=== PATIENT | female | born 1975 | race African-American/Black ===

== ENCOUNTER 2017-01-15 16:53 | Emergency (ER) | payer OTHER, SELFPAY ==
[2017-01-15] MEDS ORDERED: Ketorolac Tromethamine 30 MG/ML VIAL ONE (17:56)
== END 2017-01-15 18:18 | disposition home or self-care (01) ==
LOC: ERS 16:53
DX: M54.6 Pain in thoracic spine (principal); M89.8X1 Other specified disorders of bone, shoulder; E11.9 Type 2 diabetes mellitus without complications; I10 Essential (primary) hypertension; F17.210 Nicotine dependence, cigarettes, uncomplicated; Z79.84 Long term (current) use of oral hypoglycemic drugs; Z79.899 Other long term (current) drug therapy
CPT/HCPCS: 99283; J1885

== ENCOUNTER 2017-06-01 12:41 | Emergency (ER) | payer OTHER, SELFPAY | END 2017-06-01 14:22 | disposition left against medical advice (07) | LOC: ERS 12:41 | DX: Z53.21 Procedure and treatment not carried out due to patient leaving prior to being seen by health care provider (principal) ==

== ENCOUNTER 2017-06-01 13:21 | Observation (INO) | payer OTHER, SELFPAY ==
--- NOTE | 2017-06-01 14:04 | RAD ---
PORTABLE CHEST 1 VIEW: Date: 06/01/17 Time: 1404 hours HISTORY: Chest pain. FINDINGS: The heart size is normal. The lungs are expanded without focal areas of consolidation, pneumothorax, or pleural effusions. IMPRESSION: No radiographic evidence of acute cardiopulmonary process. POS: [facility]
[2017-06-01 14:05] LABS: #Basophils 0.1 thou/uL (0.0-0.2); #Lymphocytes 2.1 thou/uL (1.20-3.40); #Monocytes 0.3 thou/uL (0.11-0.59); #Neutrophils 3.1 thou/uL (1.40-6.50); %Eosinophils 0.4 % (0.0-10.0); %Monocytes 5.7 % (0.0-10.0); %Neutrophils 55.9 % (42.0-75.0); Hemoglobin 13.1 g/dL (12.0-16.0); Mean Corpuscular HGB CONC 34.5 g/dL (32.0-36.0); Mean Corpuscular Hemoglobin 31.3 pg (27.0-31.0); Mean Corpuscular Volume 90.8 fl (81.0-99.0); Mean Platelet Volume 7.4 fL (7.4-10.4); Platelet Count 276 thou/uL (130-400); RBC Distribution Width 10.3 % (11.5-14.5); Red Blood Cell (RBC) Count 4.19 mill/uL (4.20-5.40); White Blood Cell (WBC) Count 5.6 thou/uL (4.8-10.8)
[2017-06-01] MEDS ORDERED: Atenolol 25 MG TAB ONE (14:18)
[2017-06-01] MEDS ORDERED: Losartan 25 MG TAB ONE (14:18)
[2017-06-01] MEDS ORDERED: Acetaminophen 500 MG TAB ONE (14:18)
[2017-06-01 14:20] LABS: ALT (SGPT) 20 U/L (8-55); AST (SGOT) 23 U/L (5-34); Albumin 3.6 g/dL (3.5-5.0); Alkaline Phosphatase 102 U/L (40-150); Anion Gap 13 mmol/L (10-20); BUN (Urea Nitrogen) 7 mg/dL (7.0-18.7); CK (CPK) 61 U/L (29-168); Calc. Creatinine Clearance 0 mL/min (70-130); Calcium 9.4 mg/dL (7.8-10.44); Carbon Dioxide 27 mmol/L (22-29); Chloride 102 mmol/L (98-107); Estimated GFR-MDRD Greater than 90; Globulin 3.6 g/dL (2.4-3.5); Glucose 346 mg/dL (70-105); Potassium 3.4 mmol/L (3.5-5.1); Protein, Total 7.2 g/dL (6.0-8.3); Sodium 139 mmol/L (136-145)
[2017-06-01 14:21] LABS: CKMB 0.9 ng/mL (0-6.6); Troponin I 0.034 ng/mL (< 0.028)
--- NOTE | 2017-06-01 14:25 | CT ---
CT BRAIN WITHOUT CONTRAST: Date: 06/01/17 HISTORY: Headache. FINDINGS: Comparison made with exam of 04/11/10. No evidence of infarct, hemorrhage, midline shift, or abnormal extra-axial fluid collections are seen . The ventricular size is normal and the basilar cisterns are patent. The bony calvarium is intact. T he visualized paranasal sinuses and mastoid air cells are well aerated. IMPRESSION: No CT evidence of acute intracranial process. POS: [facility]
[2017-06-01 16:18] VITALS: BMI 30.7
[2017-06-01] MEDS ORDERED: Ondansetron ODT 4 MG TAB PO PRN (17:15)
[2017-06-01] MEDS ORDERED: cloNIDine 0.1 MG TAB PO PRN (17:15)
[2017-06-01] MEDS ORDERED: hydrALAZINE 20 MG/ML VIAL SLOW IVP PRN (17:15)
[2017-06-01] MEDS ORDERED: HumaLOG 300 UNITS/3 ML VIAL SC PRN ×2 (17:15)
[2017-06-01] MEDS ORDERED: Dextrose 50% Abboject 50 ML SYRINGE SLOW IVP PRN (17:15)
[2017-06-01] MEDS ORDERED: Labetalol HCl 100 MG/20 ML VIAL SLOW IVP PRN (17:15)
[2017-06-01] MEDS ORDERED: HYDROcodone/Acetaminophen 5/325 mg Tablet PO PRN (17:15)
[2017-06-01] MEDS ORDERED: Dextrose 5% in Water 1,000 ML IV PRN (17:15)
[2017-06-01] MEDS ORDERED: Ondansetron HCl/PF 4 MG/2 ML Vial IVP PRN (17:15)
[2017-06-01] MEDS ORDERED: Acetaminophen 325 MG TAB PO PRN (17:15)
[2017-06-01 17:32] LABS: Troponin I 0.067 ng/mL (< 0.028)
[2017-06-01] MEDS: Carvedilol 6.25 MG TAB PO SCH (19:36)
[2017-06-01] MEDS: Famotidine 20 MG TAB PO SCH (19:37)
--- NOTE | 2017-06-01 19:52 | HP ---
PRIMARY CARE PHYSICIAN: The patient does not have a primary care physician. CHIEF COMPLAINT: Headache. HISTORY OF PRESENT ILLNESS: Ms. Lin is a very pleasant 41-year-old female that has a history of hype rtension and diabetes. She says she has had hypertension for about little under 10 years and also ndiaye s been diabetic for about 19 years. She says that about 6 months ago, she stopped taking medication because she could not afford it. Then, she says recently she started having a headache and she says that her vision was blurred a bit too. She had been taking ibuprofen and it was not helping, and as a result, she came to the ER for evaluation. When she was in the ER, they evaluated her and got a CT scan of the head which was negative and they ordered some lab work, and it was noted that her tropon in was slightly elevated. She says then they started asking her about chest pain. She says that she started having some chest pressure about 2 days ago. She says it felt like heaviness in her chest. She says it feels like somebody is pushing on her and she cannot tell if it is really pain or whethe r or not, she is just exhausted. She says the pain goes through to her back, and she says that she f eels a little bit short of breath as well like she cannot catch her breath. She says that this pain is not related to exertion and it will happen either at rest or on exertion and that the shortness of breath is the same way. She does say that she did feel a bit nauseated earlier and she also says th at she has been having some hurting in her right arm and hip and sometimes in her neck, but otherwise no other complaints. She also denies having any dizziness or feeling lightheaded. There has been n o radiation to the pain, etc. She also denies being on any long trips recently and no leg pain or le g swelling. REVIEW OF SYSTEMS: Constitutional: There have been no fevers or chills. No night sweats. No weight loss. She does co mplain of some body aches, however. HEENT: She has had the headache as previously mentioned as well as some visual changes, no sore thro at, no rhinorrhea, neck pain, no adenopathy. Pulmonary: No hemoptysis, no cough, no congestion. Cardiovascular: As the history of present illness. Gastrointestinal: She denies any abdominal pain, but she has had some nausea and vomiting, no change in bowels. Genitourinary: No urinary frequency or hematuria. No hesitancy. Neurologic: No focal weakness or numbness. No seizures. Psychiatric: No symptoms of anxiety or depression. Skin and Integument: No skin changes. No rash. PAST MEDICAL HISTORY: Significant for hypertension as well as diabetes mellitus. She has had hypert ension under 10 years and diabetes mellitus for 19 years. PAST SURGICAL HISTORY: She has had a hysterectomy and she believes she had her left ovary removed as well, thyroidectomy. She said she had another surgery on her left side, but she is not sure what th ey did. ALLERGIES: No known drug allergies. FAMILY HISTORY: Significant for asthma. No history of any ischemic heart disease. SOCIAL HISTORY: She admits to smoking about a third a pack per day for about 15 years. Occasionally drinks. She is single, has 4 children. CURRENT MEDICATIONS: None. She had been taking metformin, lisinopril, and atenolol. PHYSICAL EXAMINATION: GENERAL: She is alert and oriented. She appears to be in no acute distress. VITAL SIGNS: Her blood pressure earlier was approximately 180/110, heart rate 106, respiratory rate of 16, and she is afebrile. HEENT: Pupils are equal, round, and reactive. Extraocular muscles are intact. Her sclerae are anic teric. Throat: There is no erythema, no exudates. NECK: No adenopathy, no bruits. LUNGS: Clear. No wheezing, no rales. CARDIOVASCULAR: She has a normal S1, S2. I did not appreciate an S3 or S4. No murmurs, clicks or r ubs. ABDOMEN: Soft, it is nontender, nondistended. Positive for bowel sounds. No rebound or guarding. EXTREMITIES: There is no clubbing, cyanosis, no edema. NEUROLOGICALLY: The exam is nonfocal. LABORATORY DATA: Sodium 139, potassium 3.4, chloride is 102, CO2 is 27, BUN is 7, creatinine 0.8, gl ucose is 346, troponin was 0.034. White blood cell count 5.6, hemoglobin 13.1, hematocrit is 38, daniel telet count is 276. EKG was sinus tachycardia with heart rate of approximately 126. ASSESSMENT AND PLAN: This is a pleasant 41-year-old female that presents to the emergency room initi [facility] with complaint of headache, but was later discovered that she has been having chest pain as well . She also had a slightly elevated troponin at 0.036. I suspect that her symptoms could be entirely related to elevated blood pressure, this would be consistent with causing the headache as well as so me of the chest pressure and possibly a demand ischemia. However, since the patient is uninsured and does not have a primary care physician, I think a cardiac workup would be in order in that she may n ot be able to have followup in the near future to rule out ischemic heart disease, which she is at [facility]; however, I do not suspect an acute coronary syndrome. Also, I think she has adequate risks for p ossible pulmonary embolism as well in that she is slightly overweight for her height and she has a si nus tachycardia as well and some of the characteristics of the pain which are not related to exertion make it difficult to rule this out as well. Therefore, she will be placed in observation. We will get a D-dimer and think we also go ahead and get a CT angiogram of her chest. We will go ahead and g et that now and then tomorrow we will plan on getting a nuclear stress test as well. For elevated blood pressure, we will start her back on lisinopril instead of atenolol will change to carvedilol as this will be less expensive and it is available in the generic. We will hold off on me tformin for now and treat her with a sliding scale. I suspect that she can be restarted on metformin at the time of discharge. Tobacco abuse. She was counseled on the dangers of tobacco abuse and the need to quit, especially in light of a history of hypertension and diabetes.
[2017-06-01 20:39] LABS: Troponin I 0.113 ng/mL (< 0.028)
[2017-06-01] MEDS: Nitroglycerin 2% Ointment 1 INCH/1 GM Packet TOP SCH (20:58)
[2017-06-01] MEDS ORDERED: Lisinopril 10 MG TAB PO SCH (21:00)
[2017-06-01] MEDS ORDERED: Melatonin 3 MG TAB PO SCH (21:15)
[2017-06-02 05:55] LABS: Anion Gap 11 mmol/L (10-20); BUN (Urea Nitrogen) 10 mg/dL (7.0-18.7); Calc. Creatinine Clearance 128 mL/min (70-130); Calcium 9.2 mg/dL (7.8-10.44); Carbon Dioxide 28 mmol/L (22-29); Cardiac Risk 3.6 (Less than 4.5); Chloride 102 mmol/L (98-107); Cholesterol 100 mg/dl (< 200 Desired); Estimated GFR-MDRD Greater than 90; Glucose 287 mg/dL (70-105); HDL Cholesterol 28 mg/dL (>60 Neg Risk); LDL Cholesterol, Calculated 38 mg/dL; Potassium 3.3 mmol/L (3.5-5.1); Sodium 138 mmol/L (136-145); Triglycerides 169 mg/dL (Less than 150)
[2017-06-02 05:59] LABS: Band 3 % (5-11); Hemoglobin 12.6 g/dL (12.0-16.0); Lymphocytes 53 % (21-51); MDiff Complete? YES; Mean Corpuscular HGB CONC 34.2 g/dL (32.0-36.0); Mean Corpuscular Volume 96.5 fl (81.0-99.0); Mean Platelet Volume 7.8 fL (7.4-10.4); Monocytes 7 % (0-10); Neutrophil 33 % (42-75); PLT Morphology Comment Appears Adequate; Platelet Count 272 thou/uL (130-400); RBC Distribution Width 10.7 % (11.5-14.5); RBC Morphology Normal; Reactive Lymphocytes 4 % (0-10); Red Blood Cell (RBC) Count 3.83 mill/uL (4.20-5.40); White Blood Cell (WBC) Count 4.1 thou/uL (4.8-10.8)
[2017-06-02] MEDS: Nitroglycerin 2% Ointment 1 INCH/1 GM Packet TOP SCH ×2 (06:17→13:16)
--- NOTE | 2017-06-02 08:12 | PDOC.EVN ---
Event Note - Event Note Event Note: Patient refused to have the CT-Dissection Protocol last night because she did not want the larger bore IV placed which was required.
[2017-06-02] MEDS ORDERED: Enoxaparin Sodium 40 MG/0.4 ML SYRINGE SC SCH (09:00)
[2017-06-02] MEDS: Carvedilol 6.25 MG TAB PO SCH (10:22)
[2017-06-02] MEDS: Famotidine 20 MG TAB PO SCH (10:23)
--- NOTE | 2017-06-02 15:44 | NM ---
NUCLEAR MEDICINE CARDIAC MYOCARDIAL PERFUSION SPECT EJECTION FRACTION STUDY WALL MOTION CINE: DATE: 06/02/17 HISTORY: 41-year-old female smoker with hypertension and diabetes, presents with dyspnea and chest pain. TECHNIQUE: Number of days: 1 Rest study: Tc99m sestamibi (Cardiolite) dose: None (stress-only study) Exercise stress: treadmill. Stress study: Tc99m sestamibi (Cardiolite) dose: 27.5 mCi FINDINGS: CARDIAC (MYOCARDIAL PERFUSION) SPECT No left ventricular myocardial perfusion defect is identified. EJECTION FRACTION STUDY EF = 45% WALL MOTION CINE No focal wall motion abnormality. IMPRESSION: 1. No evidence of left ventricular myocardial ischemia or infarction. 2. Decreased left ventricular ejection fraction of 45%. LANA Blanton POS: [facility]
--- NOTE | 2017-06-02 15:52 | PDOC.PN ---
- Subjective Encounter Start Date: 06/02/17 Encounter Start Time: 15:51 Ms. Lin is feeling a bit better today than yesterday. The chest pain has improved. - Objective Resuscitation Status: Resuscitation Status FULL:Full Resuscitation MAR Reviewed: Yes Vital Signs & Weight: Vital Signs (12 hours) Temp Pulse Resp BP BP Pulse Ox 06/02/17 10:38 98.1 F 93 16 127/73 98 06/02/17 08:00 98.1 F 97 16 06/02/17 07:40 98.8 F 100 16 133/77 96 06/02/17 04:13 98.1 F 97 16 134/82 99 Weight Weight 179 lb I&O: 06/01/17 06/02/17 06/03/17 06:59 06:59 06:59 Intake Total 540 Balance 540 Result Diagrams: 06/02/17 04:16 06/02/17 04:16 Additional Labs: Accuchecks 06/02/17 06/02/17 06/01/17 10:47 05:31 20:53 POC Glucose 241 H 297 H 299 H 06/01/17 16:49 POC Glucose 289 H Phys Exam - Physical Examination HEENT: PERRLA Respiratory: no wheezing, no rales, no rhonchi, clear to auscultation bilateral Cardiovascular: RRR, no significant murmur, no rub Gastrointestinal: soft, non-tender, positive bowel sounds Musculoskeletal: no edema Dx/Plan (1) Chest pain Code(s): R07.9 - CHEST PAIN, UNSPECIFIED Status: Acute (2) Hypertension Code(s): I10 - ESSENTIAL (PRIMARY) HYPERTENSION Status: Chronic (3) Diabetes mellitus type 2 in obese Code(s): E11.69 - TYPE 2 DIABETES MELLITUS WITH OTHER SPECIFIED COMPLICATION; E66.9 - OBESITY, UNSPECIFIED Status: Chronic - Plan * HTN- blood pressure is better on medication * DM- will discharge with Metformin * Chest pain- likely from hypertensive urgency- stress test was negative * Stable for discharge home.
[2017-06-02 16:04] VITALS: BP 144/80; TEMP 98.5
--- NOTE | 2017-06-02 20:16 | DIS ---
DATE OF ADMISSION: 06/01/2017 DATE OF DISCHARGE: 06/02/2017 The patient currently does not have a primary care physician. DISCHARGE DISPOSITION: Home. PRIMARY DISCHARGE DIAGNOSES: 1. Hypertensive urgency. 2. Diabetes mellitus, type 2. 3. Obesity. DISCHARGE MEDICATIONS: Include lisinopril 10 mg daily, carvedilol 6.25 mg twice a day, metformin 500 mg twice daily. CODE STATUS: FULL CODE. ALLERGIES: No known drug allergies. PROCEDURES DONE DURING ADMISSION: The patient had a nuclear stress test, which demonstrated no stres s-induced myocardial ischemia. There was a decreased left ventricular ejection fraction of 45%. The patient also had a CT scan of the brain, which was negative for any acute intracranial process. HOSPITAL COURSE: Ms. Lin is a pleasant 41-year-old female, who presented to the emergency room with complaint of chest tightness, which radiated towards her back and arm. She also had an elevated trop onin in the indeterminate range. She had been out of her blood pressure medication as well as diabet ic medications for over 6 months. She stated that she was unable to afford the medications. It is s uspected that the cause of her chest discomfort was likely due to hypertensive urgency. She did have some blood pressures, which were recorded as high as 180 systolic and diastolics above 100. She was restarted on blood pressure medication and she tolerated this well. The following day, her symptoms began to improve. She was given the information that the current medications including carvedilol, lisinopril, and metformin are on the [employer] $4 list and should be affordable and that she can also f ollow up with the [facility] until she can establish an alternative primary care physician . Therefore, the patient is being discharged home. She was instructed that she does have the beginn ings of possible heart failure, i.e., an echocardiogram was performed, but it did show some diminishe d ejection fraction on the stress test and that she would need to follow a low sodium diet as well as being compliant with medications.
== END 2017-06-02 16:38 | disposition home or self-care (01) ==
LOC: SCSER 13:21 → 2SW 15:30
PROVIDERS: ADMIT Internal Medicine; ATTEND Internal Medicine
DX: I16.0 Hypertensive urgency (principal); I10 Essential (primary) hypertension; E11.9 Type 2 diabetes mellitus without complications; F17.200 Nicotine dependence, unspecified, uncomplicated; E66.9 Obesity, unspecified; Z68.30 Body mass index [BMI] 30.0-30.9, adult; Z79.84 Long term (current) use of oral hypoglycemic drugs; Z79.899 Other long term (current) drug therapy
CPT/HCPCS: 36415; 36416; 70450; 71045; 78452; 80048; 80053; 80061; 82550; 82553; 84484; 85025; 85379; 93005; 93017; 94760; A9500; G0378

== ENCOUNTER 2018-03-06 15:55 | Emergency (ER) | payer OTHER, SELFPAY ==
[2018-03-06] MEDS ORDERED: Ibuprofen 800 MG TAB ONE (16:28)
[2018-03-06] MEDS ORDERED: Benzonatate 100 MG CAP ONE (16:28)
--- NOTE | 2018-03-06 16:37 | RAD ---
CHEST TWO VIEWS: 03/06/18 HISTORY: Cough. COMPARISON: 11/17/15. FINDINGS: The cardiac silhouette and pulmonary vasculature are unremarkable. Mediastinum is midline. No conflue nt air space consolidation, pneumothorax or pleural fluid. IMPRESSION: No active cardiopulmonary abnormalities are demonstrated. POS: [facility]
== END 2018-03-06 17:08 | disposition home or self-care (01) ==
LOC: ERS 15:55
DX: J40 Bronchitis, not specified as acute or chronic (principal); F17.210 Nicotine dependence, cigarettes, uncomplicated; I10 Essential (primary) hypertension; E11.9 Type 2 diabetes mellitus without complications
CPT/HCPCS: 71046; 87081; 87430

== ENCOUNTER 2018-07-29 21:00 | Emergency (ER) | payer SELFPAY ==
[2018-07-29 21:27] LABS: #Basophils 0.1 thou/uL (0.0-0.2); #Eosinphils 0.2 thou/uL (0.0-0.7); #Lymphocytes 2.2 thou/uL (1.20-3.40); #Monocytes 0.3 thou/uL (0.11-0.59); #Neutrophils 4.6 thou/uL (1.40-6.50); %Basophils 0.9 % (0.0-1.0); %Eosinophils 2.2 % (0.0-10.0); %Lymphocytes 29.8 % (21.0-51.0); %Monocytes 3.6 % (0.0-10.0); %Neutrophils 63.6 % (42.0-75.0); Hemoglobin 14.3 g/dL (12.0-16.0); Mean Corpuscular Hemoglobin 32.4 pg (27.0-31.0); Mean Corpuscular Volume 95.3 fL (78.0-98.0); Mean Platelet Volume 8.6 fL (7.4-10.4); Platelet Count 273 thou/uL (130-400); RBC Distribution Width 11.5 % (11.5-14.5); Red Blood Cell (RBC) Count 4.42 mill/uL (4.20-5.40); White Blood Cell (WBC) Count 7.3 thou/uL (4.8-10.8)
[2018-07-29 21:47] LABS: Bilirubin Negative (Negative); Blood, Urine Small (Negative); Clarity CLEAR (Clear); Glucose, Urine (Dipstick) >=1000 mg/dL (Negative); Leukocyte Negative (Negative); Nitrite Negative (Negative); Protein, Urine (Dipstick) 100 mg/dL (Neg-Trace); Specific Gravity, Urine 1.026 (1.002-1.036); Urobilinogen 0.2 mg/dL (0.2-1.0)
[2018-07-29 21:48] LABS: ALT (SGPT) 13 U/L (8-55); AST (SGOT) 14 U/L (5-34); Albumin 3.1 g/dL (3.5-5.0); Alkaline Phosphatase 140 U/L (40-150); Anion Gap 9 mmol/L (10-20); BUN (Urea Nitrogen) 11 mg/dL (7.0-18.7); Bilirubin, Total 0.4 mg/dL (0.2-1.2); Calc. Creatinine Clearance 0 mL/min (70-130); Calcium 9.1 mg/dL (7.8-10.44); Carbon Dioxide 30 mmol/L (22-29); Chloride 99 mmol/L (98-107); Estimated GFR-MDRD 56; Globulin 3.5 g/dL (2.4-3.5); Glucose 435 mg/dL (70-105); Potassium 3.3 mmol/L (3.5-5.1); Protein, Total 6.6 g/dL (6.0-8.3); Sodium 135 mmol/L (136-145)
[2018-07-29 21:50] LABS: Bacteria/HPF None Seen HPF (None Seen); Hyaline Casts/LPF 0-3 HYALINE CAST LPF (0-3 Hyaline); Pathc Cast-AUWi Flag 0.27 (0-2.49); Squamous Epithelial 0-3 HPF (0-3)
--- NOTE | 2018-07-30 07:36 | ULT ---
PRELIMINARY REPORT/[facility]/EMERGENCY AFTER HOURS PROCEDURE: EXAM: US Pelvis Complete, Transabdominal and US Pelvis, Transvaginal EXAM DATE/TIME: 07/30/2018 2:31 AM CLINICAL HISTORY: 43 years old, female; Pain and signs and symptoms; Constipation; Slow transit; Pelvic pain; Prior surgery; Surgery date: 6+ months; Surgery type: Hysterectomy x yrs ago, left ov remains; Patient HX: Llq pain, constipation TECHNIQUE: Imaging protocol: Real-time transabdominal and transvaginal pelvic ultrasound (complete) with image documentation. Transvaginal imaging was used for better evaluation of the endometrium and adnexa. COMPARISON: CT Stone Protocol 07/30/2018 12:34 AM FINDINGS: Uterus/cervix: Prior hysterectomy. Right adnexa: Prior right oophorectomy. Left adnexa: 2.4 cm left ovarian cyst. Left ovary otherwise normal with normal Doppler signal. Free fluid: None. IMPRESSION: 2.4 cm left ovarian cyst. Thank you for allowing us to participate in the care of your patient. Dictated and Authenticated by: Sea Gray MD 07/30/2018 4:45 AM Central Time ([place] & [place]) FINAL REPORT US Pelvic Transvag W Doppler History: [Pelvic pain and constipation. Prior hysterectomy.] Comparison: CT abdomen and pelvis without contrast stone protocol same day Real-time grayscale, color, and spectral analysis of the pelvis performed transabdominal and transvag inal approach. Impression: Findings and impression are concordant with the preliminary report. Transcribed Date/Time: 07/30/2018 7:54 AM
--- NOTE | 2018-07-30 07:37 | CT ---
CT ABDOMEN AND PELVIS WITHOUT CONTRAST: Date: 07/29/18 HISTORY: Left flank pain. FINDINGS: Absence of oral and IV contrast reduces the sensitivity of exam, particularly for evaluation of solid organs and bowel. The lung bases are clear. No free air or free fluid is seen in the abdomen or pelvis. No calcified ga llstones are seen. There is a 3.0 mm calculus in the inferior pole manjeet of the left kidney. No calculi seen in the righ t kidney, either ureter, or the urinary bladder. No hydroureteronephrosis is noted on either side. The appendix is normal. No aneurysmal dilatation of the abdominal aorta is seen. There are mild degen erative changes in the spine. The patient is post hysterectomy. There is mass-like prominence of the left adnexa. IMPRESSION: 1. Nonobstructing 3.0 mm left renal calculus. 2. Prominence of the left ovary. The possibility of a left ovarian mass cannot be excluded and would be better evaluated with a pelvic ultrasound. POS: [facility]
== END 2018-07-30 04:55 | disposition home or self-care (01) ==
LOC: ERS 21:00
DX: N12 Tubulo-interstitial nephritis, not specified as acute or chronic (principal); K59.00 Constipation, unspecified; E11.9 Type 2 diabetes mellitus without complications; I10 Essential (primary) hypertension; F17.210 Nicotine dependence, cigarettes, uncomplicated
CPT/HCPCS: 36415; 74176; 76856; 80053; 81003; 81015; 83690; 85025; 87086

== ENCOUNTER 2018-08-20 23:16 | Emergency (ER) | payer SELFPAY ==
[2018-08-20 23:48] LABS: Bacteria/HPF 1+ HPF (None Seen); Bilirubin Negative (Negative); Blood, Urine Moderate (Negative); Clarity Slightly Cloudy (Clear); Glucose, Urine (Dipstick) >=1000 mg/dL (Negative); Hyaline Casts/LPF NONE SEEN LPF (0-3 Hyaline); Leukocyte Negative (Negative); Nitrite Negative (Negative); Protein, Urine (Dipstick) > or equal to 300 mg/dL (Neg-Trace); Specific Gravity, Urine 1.015 (1.005-1.030); Squamous Epithelial 0-3 HPF (0-3); WBC/HPF 0-3 HPF (0-3)
--- NOTE | 2018-08-21 07:45 | CT ---
PRELIMINARY REPORT/[facility]/EMERGENCY AFTER HOURS PROCEDURE: EXAM: CT Abdomen and Pelvis Without Contrast EXAM DATE/TIME: 08/21/2018 12:00 AM CLINICAL HISTORY: 43 years old, female; Abdominal pain; Patient HX: Left flank for 2 days, hematuria today. Hs of total hysterectomy. TECHNIQUE: Imaging protocol: Axial computed tomography images of the abdomen and pelvis without contrast. Masterson l reformatted images were created and reviewed. Radiation optimization: All CT scans at this facility use at least one of these dose optimization techniques: automated exposure control; mA and/or kV adj ustment per patient size (includes targeted exams where dose is matched to clinical indication); or i terative reconstruction. COMPARISON: CT Stone Protocol 07/30/2018 12:34 AM FINDINGS: ABDOMEN: Liver: No acute findings. No mass. Gallbladder and bile ducts: No calcified stones. No ductal dilation. Pancreas: No acute findings. No ductal dilation. Spleen: No acute findings. No splenomegaly. Adrenals: No acute findings. No mass. Kidneys and ureters: Punctate left renal nonobstructing stone. No obstructing stone. No hydronephrosi s. Stomach and bowel: Fecal loading. Diverticulosis. No evidence of bowel obstruction. Appendix: No evidence of appendicitis. PELVIS: Bladder: No stones. Reproductive: No acute findings. ABDOMEN and PELVIS: Intraperitoneal space: No free air. No significant fluid collection. Bones/joints: No acute fracture. Soft tissues: Stable. Vasculature: No abdominal aortic aneurysm. Lymph nodes: No significant adenopathy. IMPRESSION: Punctate left renal nonobstructing stone. Otherwise no acute findings. Thank you for allowing us to participate in the care of your patient. Dictated and Authenticated by: Lamin Shoemaker MD 08/21/2018 12:42 AM Central Time ([place] & [place]) FINAL REPORT EMERGENCY AFTER HOURS ABDOMEN AND PELVIC CT SCAN WITHOUT IV CONTRAST: Date: 08/21/18 Time: 0005 hours FINDINGS/IMPRESSION: Tiny, nonobstructing left renal calculi. No evidence for acute obstruction. No CT evidence for acu te appendicitis. Probable postsurgical fat stranding in the midline near the umbilicus. No significan t other acute process. Report in agreement with preliminary report given on-call by [facility]. POS: [facility]
== END 2018-08-21 02:01 | disposition home or self-care (01) ==
LOC: SCSER 23:16
DX: M54.5 Low back pain (principal); E11.9 Type 2 diabetes mellitus without complications; I10 Essential (primary) hypertension; F17.210 Nicotine dependence, cigarettes, uncomplicated
CPT/HCPCS: 74176; 81003; 81015

== ENCOUNTER 2018-09-19 08:55 | Emergency (ER) | payer SELFPAY ==
[2018-09-19] MEDS ORDERED: Diazepam 5 MG TAB ONE (10:10)
[2018-09-19] MEDS ORDERED: Ketorolac Tromethamine 30 MG/ML VIAL ONE (10:10)
[2018-09-19 10:24] LABS: #Eosinphils 0.2 thou/uL (0.0-0.7); #Lymphocytes 2.7 thou/uL (1.20-3.40); #Monocytes 0.2 thou/uL (0.11-0.59); #Neutrophils 3.5 thou/uL (1.40-6.50); %Basophils 0.6 % (0.0-1.0); %Eosinophils 3.3 % (0.0-10.0); %Lymphocytes 40.2 % (21.0-51.0); %Monocytes 2.9 % (0.0-10.0); Hemoglobin 14.4 g/dL (12.0-16.0); Mean Corpuscular HGB CONC 33.9 g/dL (32.0-36.0); Mean Corpuscular Volume 94.4 fL (78.0-98.0); Platelet Count 322 thou/uL (130-400); RBC Distribution Width 11.1 % (11.5-14.5); Red Blood Cell (RBC) Count 4.52 mill/uL (4.20-5.40); White Blood Cell (WBC) Count 6.6 thou/uL (4.8-10.8)
[2018-09-19 10:32] LABS: BHCG - Serum Negative (NEGATIVE); Pregs Control Background? CLEAR/WHITE (CLR/WHITE); Pregs Control Bar Appear? YES (CONTROL BAR)
[2018-09-19 10:49] LABS: ALT (SGPT) 12 U/L (8-55); AST (SGOT) 13 U/L (5-34); Albumin 3.6 g/dL (3.5-5.0); Alkaline Phosphatase 97 U/L (40-150); Anion Gap 14 mmol/L (10-20); BUN (Urea Nitrogen) 16 mg/dL (7.0-18.7); Bilirubin, Total 0.7 mg/dL (0.2-1.2); Calc. Creatinine Clearance 0 mL/min (70-130); Calcium 10.1 mg/dL (7.8-10.44); Carbon Dioxide 28 mmol/L (22-29); Chloride 100 mmol/L (98-107); Estimated GFR-MDRD 72; Globulin 3.5 g/dL (2.4-3.5); Glucose 159 mg/dL (70-105); Lipase 100 U/L (8-78); Potassium 3.6 mmol/L (3.5-5.1); Protein, Total 7.1 g/dL (6.0-8.3); Sodium 138 mmol/L (136-145)
--- NOTE | 2018-09-19 11:12 | RAD ---
Chest AP view INDICATION: Chest pain COMPARISON: June 01, 2017 FINDINGS: Lungs:The lungs are clear Cardiac silhouette pulmonary vasculature:The cardiomediastinal silhouette appears within normal limit s. Pleural spaces:No pleural effusion or pneumothorax is demonstrated. Upper abdomen:No abnormality seen. Osseous structures: No acute osseous abnormality. Additional findings:None. IMPRESSION: No acute cardiopulmonary abnormality.
[2018-09-19 13:16] LABS: Bilirubin Negative (Negative); Blood, Urine Small (Negative); Clarity CLOUDY (Clear); Glucose, Urine (Dipstick) Negative (Negative); Leukocyte Trace (Negative); Nitrite Negative (Negative); Protein, Urine (Dipstick) 300 mg/dL (Neg-Trace); Specific Gravity, Urine 1.016 (1.002-1.036); Urobilinogen 0.2 mg/dL (0.2-1.0); pH, Urine 5.5 (5.0-9.0)
[2018-09-19 13:24] LABS: Bacteria/HPF 4+ HPF (None Seen); Hyaline Casts/LPF NONE SEEN LPF (0-3 Hyaline); RBC/HPF 0-3 HPF (0-3); Squamous Epithelial 0-3 HPF (0-3)
== END 2018-09-19 13:55 | disposition home or self-care (01) ==
LOC: ERS 08:55
DX: N39.0 Urinary tract infection, site not specified (principal); F17.210 Nicotine dependence, cigarettes, uncomplicated
CPT/HCPCS: 36415; 71045; 80053; 81003; 81015; 83690; 84484; 84703; 85025; 87077; 87086; 87186; 93005; 96372; J1885

== ENCOUNTER 2019-04-04 21:20 | Emergency (ER) | payer MEDICAID, OTHER ==
[2019-04-04] MEDS ORDERED: HYDROcodone/Acetaminophen 5/325 mg Tablet ONE (22:40)
== END 2019-04-04 23:05 | disposition home or self-care (01) ==
LOC: ERS 21:20
DX: R20.2 Paresthesia of skin (principal); E11.9 Type 2 diabetes mellitus without complications; I10 Essential (primary) hypertension; Z87.891 Personal history of nicotine dependence; Z79.84 Long term (current) use of oral hypoglycemic drugs; Z79.899 Other long term (current) drug therapy; Z79.82 Long term (current) use of aspirin
CPT/HCPCS: 36416; 99283

== ENCOUNTER 2022-04-17 11:43 | Inpatient (IN) | payer MEDICAID, OTHER ==
[2022-04-17 12:37] LABS: #Eosinphils 0.4 thou/uL (0.0-0.7); #Lymphocytes 3.2 thou/uL (1.20-3.40); #Monocytes 0.4 thou/uL (0.11-0.59); #Neutrophils 6.3 thou/uL (1.40-6.50); %Basophils 0.5 % (0.0-1.0); %Eosinophils 3.9 % (0.0-10.0); %Monocytes 3.9 % (0.0-10.0); %Neutrophils 60.9 % (42.0-75.0); Hemoglobin 11.6 g/dL (12.0-16.0); Mean Corpuscular HGB CONC 33.9 g/dL (32.0-36.0); Mean Corpuscular Hemoglobin 32.2 pg (27.0-31.0); Mean Platelet Volume 8.3 fL (7.4-10.4); Platelet Count 370 10x3/uL (130-400); RBC Distribution Width 12.1 % (11.5-14.5); Red Blood Cell (RBC) Count 3.61 mill/uL (4.20-5.40); White Blood Cell (WBC) Count 10.3 10x3/uL (4.8-10.8)
[2022-04-17 12:49] LABS: BHCG - Serum Negative (NEGATIVE); Pregs Control Background? CLEAR/WHITE (CLR/WHITE); Pregs Control Bar Appear? YES (CONTROL BAR)
[2022-04-17 12:56] LABS: ALT (SGPT) 18 U/L (8-55); AST (SGOT) 13 U/L (5-34); Albumin 3.6 g/dL (3.5-5.0); Alkaline Phosphatase 121 U/L (40-110); Anion Gap 15 mmol/L (10-20); BUN (Urea Nitrogen) 55 mg/dL (7.0-18.7); Bilirubin, Total 0.8 mg/dL (0.2-1.2); Calc. Creatinine Clearance 0 mL/min (70-130); Calcium 9.9 mg/dL (7.8-10.44); Carbon Dioxide 17 mmol/L (22-29); Chloride 106 mmol/L (98-107); Estimated GFR 16; Glucose 227 mg/dL (70-105); Lipase 59 U/L (8-78); Potassium 4.1 mmol/L (3.5-5.1); Protein, Total 7.6 g/dL (6.0-8.3); Sodium 134 mmol/L (136-145)
[2022-04-17 13:37] LABS: Magnesium 1.3 mg/dL (1.6-2.6)
[2022-04-17 13:50] LABS: Bacteria/HPF 2+ HPF (None Seen); Bilirubin Negative (Negative); Blood, Urine Negative (Negative); Clarity Clear (Clear); Glucose, Urine (Dipstick) 30 mg/dL (Negative); Ketone, Urine Negative (Negative); Leukocyte 250 Leu/uL (Negative); Nitrite Negative (Negative); Protein, Urine (Dipstick) 100 mg/dL (Neg-Trace); Specific Gravity, Urine 1.014 (1.002-1.036); Squamous Epithelial 0-3 HPF (0-3); Urobilinogen Normal mg/dL (Less than 2); WBC/HPF 21-50 HPF (0-3); pH, Urine 5.5 (5.0-9.0)
[2022-04-17] MEDS ORDERED: cefTRIAXone\\ROCEPHIN 1 GM VIAL ONE (14:48)
[2022-04-17 15:04] LABS: SARS-CoV-2 NAA Rapid Test Not Detected (NotDetected)
[2022-04-17] MEDS ORDERED: Dextrose 50% Abboject 50 ML SYRINGE SLOW IVP PRN (16:01)
[2022-04-17] MEDS ORDERED: Ondansetron PF 4 MG/2 ML Vial IVP PRN (16:01)
[2022-04-17] MEDS ORDERED: Dextrose 5% in Water 1,000 ML IV PRN (16:01)
[2022-04-17] MEDS ORDERED: HumaLOG 300 UNITS/3 ML VIAL SC PRN ×2 (16:03)
[2022-04-17] MEDS ORDERED: hydrALAZINE 20 MG/ML VIAL SLOW IVP PRN (16:13)
[2022-04-17] MEDS ORDERED: Nicotine 7 MG PATCH TD PRN (16:14)
[2022-04-17] MEDS ORDERED: Magnesium 2 GM/50 ML(in water) 2 GM in Premix Bag 1 BAG IVPB SCH (16:15)
[2022-04-17] MEDS ORDERED: Magnesium 2 GM/50 ML BAG (IN WATER) ONE (16:31)
[2022-04-17] MEDS: Sodium Chloride 0.9% 1,000 ML IV SCH ×2 (16:42→23:44)
[2022-04-17 16:52] LABS: Phosphorus 3.7 mg/dL (2.3-4.7)
[2022-04-17 20:19] VITALS: BMI 34.0
[2022-04-17 22:38] LABS: Anion Gap 17 mmol/L (10-20); BUN (Urea Nitrogen) 49 mg/dL (7.0-18.7); Calc. Creatinine Clearance 35 mL/min (70-130); Calcium 9.3 mg/dL (7.8-10.44); Carbon Dioxide 13 mmol/L (22-29); Chloride 114 mmol/L (98-107); Estimated GFR 20; Glucose 157 mg/dL (70-105); Sodium 140 mmol/L (136-145)
[2022-04-18 06:40] LABS: #Eosinphils 0.3 thou/uL (0.0-0.7); #Lymphocytes 2.5 thou/uL (1.20-3.40); #Monocytes 0.4 thou/uL (0.11-0.59); #Neutrophils 4.3 thou/uL (1.40-6.50); %Basophils 0.3 % (0.0-1.0); %Eosinophils 4.5 % (0.0-10.0); %Lymphocytes 33.4 % (21.0-51.0); %Monocytes 4.9 % (0.0-10.0); Hemoglobin 9.5 g/dL (12.0-16.0); Mean Corpuscular HGB CONC 34.5 g/dL (32.0-36.0); Mean Corpuscular Hemoglobin 32.8 pg (27.0-31.0); Mean Platelet Volume 8.1 fL (7.4-10.4); Platelet Count 267 10x3/uL (130-400); Red Blood Cell (RBC) Count 2.88 mill/uL (4.20-5.40); White Blood Cell (WBC) Count 7.5 10x3/uL (4.8-10.8)
[2022-04-18 06:54] LABS: Anion Gap 13 mmol/L (10-20); BUN (Urea Nitrogen) 45 mg/dL (7.0-18.7); Calc. Creatinine Clearance 39 mL/min (70-130); Calcium 9.3 mg/dL (7.8-10.44); Carbon Dioxide 15 mmol/L (22-29); Chloride 114 mmol/L (98-107); Estimated GFR 23; Glucose 150 mg/dL (70-105); Magnesium 1.6 mg/dL (1.6-2.6); Phosphorus 3.2 mg/dL (2.3-4.7); Potassium 4.1 mmol/L (3.5-5.1); Sodium 138 mmol/L (136-145)
[2022-04-18] MEDS: Aspirin 81 mg Enteric Coated Tablet PO SCH (08:43)
[2022-04-18] MEDS: Sodium Chloride 0.9% 1,000 ML IV SCH ×3 (08:43→21:04)
[2022-04-18] MEDS ORDERED: Loperamide HCl 2 MG CAP PO PRN (11:09)
[2022-04-18 11:15] LABS: Campy jejuni + coli by PCR Negative (Negative); STEC Shiga Toxin 1+2 Negative (Negative); Salmonella spp. by PCR Negative (Negative); Shigella spp + EIEC by PCR Negative (Negative)
[2022-04-18] MEDS ORDERED: Loperamide HCl 2 MG CAP PO SCH (11:15)
[2022-04-19] MEDS: Sodium Chloride 0.9% 1,000 ML IV SCH ×2 (05:09→19:06)
[2022-04-19] MEDS: Saccharomyces boulardii 250 MG CAP PO SCH (09:23)
[2022-04-19] MEDS: Aspirin 81 mg Enteric Coated Tablet PO SCH (09:23)
[2022-04-19 09:45] LABS: Anion Gap 15 mmol/L (10-20); BUN (Urea Nitrogen) 28 mg/dL (7.0-18.7); Calc. Creatinine Clearance 48 mL/min (70-130); Calcium 9.1 mg/dL (7.8-10.44); Carbon Dioxide 10 mmol/L (22-29); Chloride 119 mmol/L (98-107); Estimated GFR 29; Glucose 157 mg/dL (70-105); Potassium 4.4 mmol/L (3.5-5.1); Sodium 140 mmol/L (136-145)
[2022-04-19 10:13] LABS: #Eosinphils 0.4 thou/uL (0.0-0.7); #Lymphocytes 2.7 thou/uL (1.20-3.40); #Monocytes 0.3 thou/uL (0.11-0.59); #Neutrophils 3.5 thou/uL (1.40-6.50); %Basophils 0.7 % (0.0-1.0); %Eosinophils 6.4 % (0.0-10.0); %Monocytes 4.1 % (0.0-10.0); %Neutrophils 49.8 % (42.0-75.0); Hemoglobin 11.2 g/dL (12.0-16.0); Mean Corpuscular HGB CONC 34.2 g/dL (32.0-36.0); Mean Corpuscular Hemoglobin 32.7 pg (27.0-31.0); Mean Corpuscular Volume 95.6 fl (78.0-98.0); Mean Platelet Volume 7.9 fL (7.4-10.4); Platelet Count 343 10x3/uL (130-400); RBC Distribution Width 12.1 % (11.5-14.5); Red Blood Cell (RBC) Count 3.44 mill/uL (4.20-5.40); White Blood Cell (WBC) Count 6.9 10x3/uL (4.8-10.8)
[2022-04-19] MEDS: Acetaminophen 325 MG TAB PO PRN ×2 (11:29→21:51)
[2022-04-19] MEDS: Sodium Bicarbonate Tab 325 MG TAB PO SCH ×2 (14:17→21:51)
[2022-04-20] MEDS: Sodium Chloride 0.9% 1,000 ML IV SCH ×2 (02:41→09:09)
[2022-04-20 06:30] LABS: #Eosinphils 0.4 thou/uL (0.0-0.7); #Lymphocytes 2.3 thou/uL (1.20-3.40); #Monocytes 0.3 thou/uL (0.11-0.59); #Neutrophils 2.6 thou/uL (1.40-6.50); %Basophils 0.4 % (0.0-1.0); %Eosinophils 7.5 % (0.0-10.0); %Lymphocytes 40.1 % (21.0-51.0); %Monocytes 5.9 % (0.0-10.0); %Neutrophils 46.1 % (42.0-75.0); Hemoglobin 9.2 g/dL (12.0-16.0); Mean Corpuscular HGB CONC 33.8 g/dL (32.0-36.0); Mean Corpuscular Hemoglobin 32.2 pg (27.0-31.0); Mean Corpuscular Volume 95.4 fl (78.0-98.0); Mean Platelet Volume 7.8 fL (7.4-10.4); Platelet Count 282 10x3/uL (130-400); Red Blood Cell (RBC) Count 2.85 mill/uL (4.20-5.40); White Blood Cell (WBC) Count 5.7 10x3/uL (4.8-10.8)
[2022-04-20 06:47] LABS: Anion Gap 13 mmol/L (10-20); BUN (Urea Nitrogen) 26 mg/dL (7.0-18.7); Calc. Creatinine Clearance 51 mL/min (70-130); Calcium 9.2 mg/dL (7.8-10.44); Carbon Dioxide 16 mmol/L (22-29); Chloride 112 mmol/L (98-107); Estimated GFR 31; Glucose 169 mg/dL (70-105); Potassium 3.9 mmol/L (3.5-5.1); Sodium 137 mmol/L (136-145)
[2022-04-20] MEDS: Aspirin 81 mg Enteric Coated Tablet PO SCH (09:10)
[2022-04-20] MEDS: Sodium Bicarbonate Tab 325 MG TAB PO SCH (09:11)
[2022-04-20] MEDS: Saccharomyces boulardii 250 MG CAP PO SCH (09:11)
[2022-04-20 12:24] VITALS: BP 141/91; TEMP 98
== END 2022-04-20 12:23 | disposition home or self-care (01) | DRG 683 ==
LOC: ERS 11:43 → ERHOLD 14:18 → T4-A 19:51
PROVIDERS: ADMIT Family Medicine; ATTEND Internal Medicine
DX: N17.9 Acute kidney failure, unspecified (principal); E87.1 Hypo-osmolality and hyponatremia; E87.20 Acidosis, unspecified; N30.00 Acute cystitis without hematuria; A08.4 Viral intestinal infection, unspecified; N18.4 Chronic kidney disease, stage 4 (severe); Z20.822 Contact with and (suspected) exposure to COVID-19; E83.42 Hypomagnesemia; K21.9 Gastro-esophageal reflux disease without esophagitis; I12.9 Hypertensive chronic kidney disease with stage 1 through stage 4 chronic kidney disease, or unspecified chronic kidney disease; D63.1 Anemia in chronic kidney disease; Z79.84 Long term (current) use of oral hypoglycemic drugs; Z79.82 Long term (current) use of aspirin; Z79.899 Other long term (current) drug therapy
CPT/HCPCS: 36415; 36416; 71045; 76770; 80048; 80053; 81003; 81015; 83690; 83735; 84100; 84484; 84703; 85025; 87086; 87324; 87449; 87505; 93005; 96361; 96365; J0696; J2405; J3475; J7050; U0002

== ENCOUNTER 2022-08-08 13:36 | Emergency (ER) | payer OTHER ==
[2022-08-08 14:43] LABS: #Basophils 0.1 thou/uL (0.0-0.2); #Eosinphils 0.3 thou/uL (0.0-0.7); #Lymphocytes 2.8 thou/uL (1.20-3.40); #Monocytes 0.4 thou/uL (0.11-0.59); #Neutrophils 6.5 thou/uL (1.40-6.50); %Basophils 0.6 % (0.0-1.0); %Eosinophils 3.4 % (0.0-10.0); %Monocytes 3.8 % (0.0-10.0); %Neutrophils 64.3 % (42.0-75.0); Hemoglobin 11.4 g/dL (12.0-16.0); Mean Corpuscular HGB CONC 33.8 g/dL (32.0-36.0); Mean Corpuscular Hemoglobin 31.9 pg (27.0-31.0); Mean Corpuscular Volume 94.4 fl (78.0-98.0); Mean Platelet Volume 8.9 fL (7.4-10.4); Platelet Count 263 10x3/uL (130-400); RBC Distribution Width 11.7 % (11.5-14.5); Red Blood Cell (RBC) Count 3.58 mill/uL (4.20-5.40)
[2022-08-08 15:04] LABS: ALT (SGPT) 10 U/L (8-55); AST (SGOT) 12 U/L (5-34); Albumin 2.7 g/dL (3.5-5.0); Alkaline Phosphatase 180 U/L (40-110); Anion Gap 14 mmol/L (10-20); BUN (Urea Nitrogen) 32 mg/dL (7.0-18.7); Bilirubin, Total 0.3 mg/dL (0.2-1.2); Calc. Creatinine Clearance 0 mL/min (70-130); Calcium 9.2 mg/dL (7.8-10.44); Carbon Dioxide 23 mmol/L (22-29); Chloride 105 mmol/L (98-107); Estimated GFR 18; Globulin 3.4 g/dL (2.4-3.5); Glucose 125 mg/dL (70-105); Protein, Total 6.1 g/dL (6.0-8.3); Sodium 139 mmol/L (136-145)
== END 2022-08-08 19:05 | disposition left against medical advice (07) ==
LOC: ERS 13:36
DX: Z53.29 Procedure and treatment not carried out because of patient's decision for other reasons (principal)
CPT/HCPCS: 36415; 36416; 80053; 85025

== ENCOUNTER 2022-12-21 10:09 | Emergency (ER) | payer OTHER ==
[2022-12-21] MEDS ORDERED: Ondansetron ODT 4 MG TAB ONE (10:23)
== END 2022-12-21 11:17 | disposition home or self-care (01) ==
LOC: ERS 10:09
DX: U07.1 COVID-19 (principal); R11.2 Nausea with vomiting, unspecified; R19.7 Diarrhea, unspecified; E11.9 Type 2 diabetes mellitus without complications; I10 Essential (primary) hypertension; Z87.891 Personal history of nicotine dependence; Z79.82 Long term (current) use of aspirin; Z79.4 Long term (current) use of insulin
CPT/HCPCS: 99283; Q0162

== ENCOUNTER 2022-12-22 07:15 | Emergency (ER) | payer OTHER ==
[2022-12-22 08:07] LABS: #Monocytes 0.2 thou/uL (0.11-0.59); %Basophils 0.1 % (0.0-1.0); %Lymphocytes 17.8 % (21.0-51.0); %Neutrophils 79.8 % (42.0-75.0); Hematocrit 34.2 % (36.0-47.0); Hemoglobin 11.4 g/dL (12.0-16.0); Mean Corpuscular HGB CONC 33.3 g/dL (32.0-36.0); Mean Corpuscular Hemoglobin 30.5 pg (27.0-31.0); Mean Corpuscular Volume 91.4 fl (78.0-98.0); Mean Platelet Volume 10.8 fL (7.4-10.4); Platelet Count 283 10x3/uL (130-400); RBC Distribution Width 12.8 % (11.5-14.5); Red Blood Cell (RBC) Count 3.74 mill/uL (4.20-5.40); White Blood Cell (WBC) Count 7.6 10x3/uL (4.8-10.8)
[2022-12-22 08:30] LABS: ALT (SGPT) 17 U/L (8-55); AST (SGOT) 16 U/L (5-34); Albumin 3.2 g/dL (3.5-5.0); Alkaline Phosphatase 186 U/L (40-110); Anion Gap 19 mmol/L (10-20); BUN (Urea Nitrogen) 38 mg/dL (7.0-18.7); Bilirubin, Total 0.4 mg/dL (0.2-1.2); Calc. Creatinine Clearance 0 mL/min (70-130); Calcium 8.9 mg/dL (7.8-10.44); Carbon Dioxide 23 mmol/L (22-29); Chloride 98 mmol/L (98-107); Estimated GFR 13; Lipase 108 U/L (8-78); Potassium 3.6 mmol/L (3.5-5.1); Protein, Total 7.2 g/dL (6.0-8.3); Sodium 136 mmol/L (136-145)
[2022-12-22 08:33] LABS: Troponin I Less than 0.010 ng/mL (< 0.028)
[2022-12-22 08:38] LABS: Glucose 466 mg/dL (70-105)
== END 2022-12-22 10:04 | disposition home or self-care (01) ==
LOC: ERS 07:15
DX: U07.1 COVID-19 (principal); K21.9 Gastro-esophageal reflux disease without esophagitis; E11.22 Type 2 diabetes mellitus with diabetic chronic kidney disease; N18.4 Chronic kidney disease, stage 4 (severe); I12.9 Hypertensive chronic kidney disease with stage 1 through stage 4 chronic kidney disease, or unspecified chronic kidney disease; Z87.891 Personal history of nicotine dependence
CPT/HCPCS: 36415; 71045; 80053; 83690; 83880; 84484; 85025; 85379; 93005; 96360; 96361; 99283; Q0162

== ENCOUNTER 2022-12-25 12:39 | Inpatient (IN) | payer OTHER ==
[2022-12-25 13:17] LABS: #Monocytes 0.5 thou/uL (0.11-0.59); #Neutrophils 11.6 thou/uL (1.40-6.50); %Basophils 0.2 % (0.0-1.0); %Eosinophils 0.1 % (0.0-10.0); %Lymphocytes 20.8 % (21.0-51.0); %Monocytes 2.9 % (0.0-10.0); %Neutrophils 75.6 % (42.0-75.0); Hematocrit 38.5 % (36.0-47.0); Hemoglobin 13.1 g/dL (12.0-16.0); Mean Corpuscular Hemoglobin 30.8 pg (27.0-31.0); Mean Corpuscular Volume 90.6 fl (78.0-98.0); Mean Platelet Volume 10.7 fL (7.4-10.4); Platelet Count 415 10x3/uL (130-400); RBC Distribution Width 12.5 % (11.5-14.5); Red Blood Cell (RBC) Count 4.25 mill/uL (4.20-5.40); White Blood Cell (WBC) Count 15.3 10x3/uL (4.8-10.8)
[2022-12-25] MEDS ORDERED: Ketorolac Tromethamine 30 MG/ML VIAL ONE (13:33)
[2022-12-25 13:41] LABS: ALT (SGPT) 11 U/L (8-55); AST (SGOT) 11 U/L (5-34); Albumin 3.6 g/dL (3.5-5.0); Alkaline Phosphatase 198 U/L (40-110); Anion Gap 19 mmol/L (10-20); BUN (Urea Nitrogen) 49 mg/dL (7.0-18.7); Bilirubin, Total 0.4 mg/dL (0.2-1.2); Calc. Creatinine Clearance 0 mL/min (70-130); Calcium 9.5 mg/dL (7.8-10.44); Carbon Dioxide 17 mmol/L (22-29); Chloride 99 mmol/L (98-107); Estimated GFR 12; Globulin 4.7 g/dL (2.4-3.5); Glucose 387 mg/dL (70-105); Potassium 3.2 mmol/L (3.5-5.1); Protein, Total 8.3 g/dL (6.0-8.3); Sodium 132 mmol/L (136-145)
[2022-12-25 13:45] LABS: Troponin I Less than 0.010 ng/mL (< 0.028)
[2022-12-25] MEDS ORDERED: Ondansetron PF 4 MG/2 ML Vial ONE (14:12)
[2022-12-25] MEDS ORDERED: Carvedilol 6.25 MG TAB PO SCH (14:30)
[2022-12-25 18:47] VITALS: BMI 32.9
[2022-12-25] MEDS ORDERED: Albuterol 200 PUFF (6.7GM INHALER) INH PRN (19:24)
[2022-12-25] MEDS ORDERED: HumaLOG 300 UNITS/3 ML VIAL SC PRN (19:24)
[2022-12-25] MEDS ORDERED: Acetaminophen 650 MG Suppository PR PRN (19:24)
[2022-12-25] MEDS ORDERED: Glucagon 1 MG/ML KIT IM PRN (19:24)
[2022-12-25] MEDS ORDERED: Dextrose 50% Abboject 50 ML SYRINGE SLOW IVP PRN (19:24)
[2022-12-25] MEDS ORDERED: Dextrose 5% in Water 1,000 ML IV PRN (19:24)
[2022-12-25] MEDS ORDERED: Benzonatate 100 MG CAP PO PRN (19:24)
[2022-12-25] MEDS ORDERED: Communication Order-Pharmacy FS ONE (19:30)
[2022-12-25] MEDS ORDERED: Promethazine HCl 12.5 MG in Sodium Chloride 0.9% 50 ML IVPB PRN (19:36)
[2022-12-25] MEDS ORDERED: Potassium Chloride 20 MEQ TAB PO SCH (19:45)
[2022-12-25] MEDS: cefTRIAXone\\ROCEPHIN 1 GM in Sodium Chloride 0.9% 100 ML IVPB SCH (20:34)
[2022-12-25] MEDS: Famotidine 20 MG TAB PO SCH (20:34)
[2022-12-25] MEDS: Sodium Chloride 0.9% 1,000 ML IV SCH (20:38)
[2022-12-25] MEDS: HumaLOG 300 UNITS/3 ML VIAL SC PRN (20:52)
[2022-12-25 20:54] LABS: Troponin I Less than 0.010 ng/mL (< 0.028)
[2022-12-25] MEDS: Famotidine/PF 20 mg/2ml Vial SLOW IVP SCH (21:15)
[2022-12-25] MEDS ORDERED: Melatonin 3 MG TAB PO PRN (21:19)
[2022-12-26 01:05] LABS: Troponin I Less than 0.010 ng/mL (< 0.028)
[2022-12-26] MEDS: Sodium Chloride 0.9% 1,000 ML IV SCH ×2 (05:52→18:10)
[2022-12-26] MEDS: Zinc Sulfate 220 MG CAP PO SCH (08:02)
[2022-12-26] MEDS: Cholecalciferol (Vitamin D3) 400 UNITS TAB PO SCH (08:02)
[2022-12-26] MEDS: Glimepiride 2 MG TAB PO SCH (08:02)
[2022-12-26] MEDS: Gabapentin 300 MG CAP PO SCH ×2 (08:02→20:17)
[2022-12-26] MEDS: Atorvastatin Calcium 20 MG TAB PO SCH (08:02)
[2022-12-26] MEDS: Carvedilol 6.25 MG TAB PO SCH ×2 (08:03→20:17)
[2022-12-26] MEDS: Insulin Glargine 30 UNITS/0.3 ML VIAL SC SCH ×2 (08:06→21:24)
[2022-12-26 08:19] LABS: #Eosinphils 0.1 thou/uL (0.0-0.7); #Monocytes 0.4 thou/uL (0.11-0.59); #Neutrophils 6.4 thou/uL (1.40-6.50); %Basophils 0.2 % (0.0-1.0); %Eosinophils 0.7 % (0.0-10.0); %Lymphocytes 31.9 % (21.0-51.0); %Monocytes 4.3 % (0.0-10.0); %Neutrophils 62.6 % (42.0-75.0); Hematocrit 36.9 % (36.0-47.0); Hemoglobin 12.4 g/dL (12.0-16.0); Mean Corpuscular HGB CONC 33.6 g/dL (32.0-36.0); Mean Corpuscular Hemoglobin 30.8 pg (27.0-31.0); Mean Corpuscular Volume 91.6 fl (78.0-98.0); Mean Platelet Volume 10.6 fL (7.4-10.4); RBC Distribution Width 12.6 % (11.5-14.5); Red Blood Cell (RBC) Count 4.03 mill/uL (4.20-5.40); White Blood Cell (WBC) Count 10.3 10x3/uL (4.8-10.8)
[2022-12-26 08:42] LABS: Platelet Count 289 10x3/uL (130-400)
[2022-12-26 08:55] LABS: ALT (SGPT) 10 U/L (8-55); AST (SGOT) 14 U/L (5-34); Albumin 3.1 g/dL (3.5-5.0); Alkaline Phosphatase 162 U/L (40-110); Anion Gap 17 mmol/L (10-20); BUN (Urea Nitrogen) 50 mg/dL (7.0-18.7); Bilirubin, Total 0.3 mg/dL (0.2-1.2); CRP (Inflammatory) 2.63 mg/dL (= or < 0.5); Calc. Creatinine Clearance 28 mL/min (70-130); Calcium 9.3 mg/dL (7.8-10.44); Carbon Dioxide 12 mmol/L (22-29); Chloride 109 mmol/L (98-107); Estimated GFR 16; Globulin 4.2 g/dL (2.4-3.5); Glucose 189 mg/dL (70-105); Lipase 120 U/L (8-78); Magnesium 1.2 mg/dL (1.6-2.6); Phosphorus 2.9 mg/dL (2.3-4.7); Potassium 4.5 mmol/L (3.5-5.1); Protein, Total 7.3 g/dL (6.0-8.3); Sodium 133 mmol/L (136-145)
[2022-12-26] MEDS ORDERED: Ascorbic Acid 500 mg Chewable Tablet PO SCH (09:00)
[2022-12-26 11:31] LABS: Lactic Acid 0.8 mmol/L (0.5-2.2)
[2022-12-26] MEDS: Heparin 5,000 UNITS/ML VIAL SC SCH ×2 (15:06→20:17)
[2022-12-26] MEDS: Sodium Bicarbonate Tab 325 MG TAB PO SCH ×2 (15:06→20:17)
[2022-12-26] MEDS: Lidocaine 4% Patch TD SCH (15:07)
[2022-12-26] MEDS: metroNIDAZOLE 500 MG in Premix Bag 1 BAG IVPB SCH ×2 (15:17→22:50)
[2022-12-26] MEDS: Famotidine/PF 20 mg/2ml Vial SLOW IVP SCH (19:33)
[2022-12-26] MEDS: cefTRIAXone\\ROCEPHIN 1 GM in Sodium Chloride 0.9% 100 ML IVPB SCH ×2 (20:17→22:50)
[2022-12-26] MEDS: Famotidine 20 MG TAB PO SCH (20:17)
[2022-12-26] MEDS ORDERED: Amoxicillin/Potassium Clav 500 MG TAB PO SCH (23:00)
[2022-12-26] MEDS ORDERED: metroNIDAZOLE 500 MG TAB PO SCH (23:00)
[2022-12-27] MEDS: Sodium Chloride 0.9% 1,000 ML IV SCH ×3 (00:25→20:29)
[2022-12-27] MEDS: Transdermal Patch Removal TOP SCH (01:52)
[2022-12-27 05:29] LABS: Hemoglobin A1c 11.1 % (4.0-6.0)
[2022-12-27 05:43] LABS: Anion Gap 14 mmol/L (10-20); BUN (Urea Nitrogen) 44 mg/dL (7.0-18.7); Calc. Creatinine Clearance 31 mL/min (70-130); Calcium 9.2 mg/dL (7.8-10.44); Carbon Dioxide 15 mmol/L (22-29); Chloride 112 mmol/L (98-107); Estimated GFR 18; Glucose 140 mg/dL (70-105); Potassium 3.4 mmol/L (3.5-5.1); Sodium 138 mmol/L (136-145)
[2022-12-27] MEDS ORDERED: Potassium Chloride 20 MEQ TAB PO SCH ×2 (07:45→08:00)
[2022-12-27] MEDS: Insulin Glargine 30 UNITS/0.3 ML VIAL SC SCH ×2 (09:00→20:29)
[2022-12-27] MEDS: metroNIDAZOLE 500 MG TAB PO SCH ×3 (09:00→20:29)
[2022-12-27] MEDS: Carvedilol 6.25 MG TAB PO SCH ×2 (09:00→13:06)
[2022-12-27] MEDS: Cholecalciferol (Vitamin D3) 400 UNITS TAB PO SCH (09:00)
[2022-12-27] MEDS: Gabapentin 300 MG CAP PO SCH (09:00)
[2022-12-27] MEDS: Calcitriol 0.25 MCG CAP PO SCH (09:00)
[2022-12-27] MEDS: Atorvastatin Calcium 20 MG TAB PO SCH (09:00)
[2022-12-27] MEDS: Zinc Sulfate 220 MG CAP PO SCH (09:00)
[2022-12-27] MEDS: Sodium Bicarbonate Tab 325 MG TAB PO SCH ×3 (09:00→20:28)
[2022-12-27] MEDS: Heparin 5,000 UNITS/ML VIAL SC SCH ×3 (09:00→20:28)
[2022-12-27] MEDS: Amoxicillin/Potassium Clav 500 MG TAB PO SCH ×2 (09:00→20:28)
[2022-12-27] MEDS: Glimepiride 2 MG TAB PO SCH (09:00)
[2022-12-27] MEDS ORDERED: Ergocalciferol 1.25 MG(50,000 UNITS) CAP PO SCH (09:00)
[2022-12-27] MEDS ORDERED: NIFEdipine XL 30 MG TAB PO SCH (13:00)
[2022-12-27] MEDS: Promethazine 25 MG TAB PO PRN (13:05)
[2022-12-27] MEDS: Lidocaine 4% Patch TD SCH (14:00)
[2022-12-27 14:08] LABS: Magnesium 1.1 mg/dL (1.6-2.6); Phosphorus 3.2 mg/dL (2.3-4.7)
[2022-12-27] MEDS ORDERED: Magnesium 2 GM/50 ML(in water) 2 GM in Premix Bag 1 BAG IVPB SCH (14:15)
[2022-12-27] MEDS ORDERED: Magnesium Oxide 400 MG TAB PO SCH (14:45)
[2022-12-27] MEDS: Magnesium Oxide 400 MG TAB PO SCH (20:29)
[2022-12-27] MEDS: Famotidine 20 MG TAB PO SCH (20:29)
[2022-12-27] MEDS: Famotidine/PF 20 mg/2ml Vial SLOW IVP SCH (20:29)
[2022-12-27 21:22] LABS: Bilirubin Negative (Negative); Blood, Urine 1+ (Negative); CAUTI Indications for Culture Dysuria,urgency,freq; Clarity Clear (Clear); Glucose, Urine (Dipstick) 100 mg/dL (Negative); Ketone, Urine 10 mg/dL (Negative); Leukocyte 25 Leu/uL (Negative); Nitrite Negative (Negative); Protein, Urine (Dipstick) 300 mg/dL (Neg-Trace); RBC/HPF 0-3 HPF (0-3); Specific Gravity, Urine 1.013 (1.002-1.036); Squamous Epithelial 0-3 HPF (0-3); Urobilinogen Normal mg/dL (Less than 2)
[2022-12-27 21:28] LABS: Bacteria/HPF Rare-Few HPF (None Seen)
[2022-12-27 21:29] LABS: Urine Culture Reflex No No
[2022-12-27] MEDS ORDERED: Carvedilol 6.25 MG TAB PO SCH (21:30)
[2022-12-28] MEDS: Transdermal Patch Removal TOP SCH (02:48)
[2022-12-28 05:33] LABS: Anion Gap 14 mmol/L (10-20); BUN (Urea Nitrogen) 40 mg/dL (7.0-18.7); Calc. Creatinine Clearance 30 mL/min (70-130); Calcium 9.3 mg/dL (7.8-10.44); Carbon Dioxide 17 mmol/L (22-29); Chloride 109 mmol/L (98-107); Estimated GFR 17; Glucose 173 mg/dL (70-105); Potassium 3.6 mmol/L (3.5-5.1); Sodium 136 mmol/L (136-145)
[2022-12-28 08:29] LABS: Magnesium 1.2 mg/dL (1.6-2.6); Phosphorus 3.2 mg/dL (2.3-4.7)
[2022-12-28] MEDS: Sodium Chloride 0.9% 1,000 ML IV SCH ×2 (09:12→17:36)
[2022-12-28] MEDS: Promethazine 25 MG TAB PO PRN (09:14)
[2022-12-28] MEDS: Carvedilol 6.25 MG TAB PO SCH ×2 (09:15→19:41)
[2022-12-28] MEDS: Calcitriol 0.25 MCG CAP PO SCH (09:16)
[2022-12-28] MEDS: Cholecalciferol (Vitamin D3) 400 UNITS TAB PO SCH (09:16)
[2022-12-28] MEDS: metroNIDAZOLE 500 MG TAB PO SCH ×3 (09:16→19:42)
[2022-12-28] MEDS: Sodium Bicarbonate Tab 325 MG TAB PO SCH ×3 (09:16→19:42)
[2022-12-28] MEDS: Zinc Sulfate 220 MG CAP PO SCH (09:16)
[2022-12-28] MEDS: Magnesium Oxide 400 MG TAB PO SCH ×2 (09:16→19:41)
[2022-12-28] MEDS: Atorvastatin Calcium 20 MG TAB PO SCH (09:17)
[2022-12-28] MEDS: NIFEdipine XL 30 MG TAB PO SCH (09:17)
[2022-12-28] MEDS: Amoxicillin/Potassium Clav 500 MG TAB PO SCH ×2 (09:17→19:47)
[2022-12-28] MEDS: Insulin Glargine 30 UNITS/0.3 ML VIAL SC SCH ×2 (09:21→21:00)
[2022-12-28] MEDS: Heparin 5,000 UNITS/ML VIAL SC SCH ×3 (09:21→20:56)
[2022-12-28] MEDS ORDERED: Lidocaine 2% Viscous Solution 20 ML, Aluminum & Magnesium Hydroxide 30 ML, Donnatal Eli... SSW SCH (10:15)
[2022-12-28] MEDS: Lidocaine 4% Patch TD SCH (15:30)
[2022-12-28] MEDS: Acetaminophen 325 MG TAB PO PRN (19:41)
[2022-12-28] MEDS: Famotidine/PF 20 mg/2ml Vial SLOW IVP SCH ×2 (19:42→20:56)
[2022-12-28] MEDS: Famotidine 20 MG TAB PO SCH (21:00)
[2022-12-28] MEDS: tiZANidine HCl 4 MG TAB PO PRN (21:25)
[2022-12-29] MEDS: Sodium Chloride 0.9% 1,000 ML IV SCH ×3 (02:37→14:39)
[2022-12-29] MEDS: Transdermal Patch Removal TOP SCH (02:37)
[2022-12-29 05:50] LABS: Anion Gap 14 mmol/L (10-20); BUN (Urea Nitrogen) 43 mg/dL (7.0-18.7); Calc. Creatinine Clearance 28 mL/min (70-130); Calcium 9.2 mg/dL (7.8-10.44); Carbon Dioxide 20 mmol/L (22-29); Chloride 105 mmol/L (98-107); Estimated GFR 16; Glucose 320 mg/dL (70-105); Potassium 3.8 mmol/L (3.5-5.1); Sodium 135 mmol/L (136-145)
[2022-12-29] MEDS: Amoxicillin/Potassium Clav 500 MG TAB PO SCH ×2 (08:57→21:51)
[2022-12-29] MEDS: Carvedilol 6.25 MG TAB PO SCH ×2 (08:57→21:51)
[2022-12-29] MEDS: Sodium Bicarbonate Tab 325 MG TAB PO SCH ×3 (08:58→22:01)
[2022-12-29] MEDS: Zinc Sulfate 220 MG CAP PO SCH ×2 (08:59→11:48)
[2022-12-29] MEDS: metroNIDAZOLE 500 MG TAB PO SCH ×3 (08:59→17:44)
[2022-12-29] MEDS: Calcitriol 0.25 MCG CAP PO SCH (08:59)
[2022-12-29] MEDS: Atorvastatin Calcium 20 MG TAB PO SCH (08:59)
[2022-12-29] MEDS: NIFEdipine XL 30 MG TAB PO SCH (08:59)
[2022-12-29] MEDS: Cholecalciferol (Vitamin D3) 400 UNITS TAB PO SCH ×2 (08:59→11:48)
[2022-12-29] MEDS: Magnesium Oxide 400 MG TAB PO SCH ×3 (08:59→22:01)
[2022-12-29] MEDS: Heparin 5,000 UNITS/ML VIAL SC SCH ×3 (09:07→22:06)
[2022-12-29] MEDS: Insulin Glargine 30 UNITS/0.3 ML VIAL SC SCH ×2 (09:07→21:55)
[2022-12-29] MEDS: Lidocaine 4% Patch TD SCH (14:58)
[2022-12-29] MEDS ORDERED: Sodium Chloride 0.9% 1,000 ML IV SCH (17:00)
[2022-12-29] MEDS ORDERED: Magnesium 2 GM/50 ML(in water) 2 GM in Premix Bag 1 BAG IVPB SCH (19:30)
[2022-12-29] MEDS: Famotidine 20 MG TAB PO SCH (21:51)
[2022-12-29] MEDS: Famotidine/PF 20 mg/2ml Vial SLOW IVP SCH (21:55)
[2022-12-29] MEDS: metroNIDAZOLE 500 MG in Premix Bag 1 BAG IVPB SCH (22:26)
[2022-12-30] MEDS: Transdermal Patch Removal TOP SCH (03:40)
[2022-12-30] MEDS: metroNIDAZOLE 500 MG in Premix Bag 1 BAG IVPB SCH ×3 (05:14→20:24)
[2022-12-30] MEDS: Promethazine 25 MG TAB PO PRN (08:54)
[2022-12-30 10:03] LABS: Anion Gap 16 mmol/L (10-20); BUN (Urea Nitrogen) 34 mg/dL (7.0-18.7); Calc. Creatinine Clearance 33 mL/min (70-130); Calcium 10.2 mg/dL (7.8-10.44); Carbon Dioxide 13 mmol/L (22-29); Chloride 110 mmol/L (98-107); Estimated GFR 19; Glucose 91 mg/dL (70-105); Potassium 3.6 mmol/L (3.5-5.1); Sodium 135 mmol/L (136-145)
[2022-12-30] MEDS: Acetaminophen 325 MG TAB PO PRN (10:04)
[2022-12-30] MEDS: Amoxicillin/Potassium Clav 500 MG TAB PO SCH ×2 (10:07→20:11)
[2022-12-30] MEDS: Carvedilol 6.25 MG TAB PO SCH ×2 (10:09→20:12)
[2022-12-30] MEDS: NIFEdipine XL 30 MG TAB PO SCH (10:11)
[2022-12-30] MEDS: Sodium Bicarbonate Tab 325 MG TAB PO SCH ×3 (10:11→20:11)
[2022-12-30] MEDS ORDERED: Potassium Chloride 20 MEQ TAB PO SCH (10:15)
[2022-12-30] MEDS ORDERED: Sodium Bicarbonate 150 MEQ in Dextrose 5% in Water 1,000 ML IV SCH (10:15)
[2022-12-30] MEDS: Insulin Glargine 30 UNITS/0.3 ML VIAL SC SCH ×2 (11:14→20:12)
[2022-12-30] MEDS ORDERED: Ondansetron ODT 4 MG TAB PO PRN (11:24)
[2022-12-30] MEDS ORDERED: cloNIDine 0.1 MG TAB PO PRN (11:25)
[2022-12-30 11:46] LABS: Hematocrit 32.6 % (36.0-47.0); Platelet Count 393 10x3/uL (130-400)
[2022-12-30] MEDS: Ondansetron PF 4 MG/2 ML Vial IVP PRN (12:11)
[2022-12-30] MEDS: Zinc Sulfate 220 MG CAP PO SCH ×2 (12:14→14:21)
[2022-12-30] MEDS: Cholecalciferol (Vitamin D3) 400 UNITS TAB PO SCH ×2 (12:14→14:21)
[2022-12-30] MEDS: Heparin 5,000 UNITS/ML VIAL SC SCH ×3 (12:14→20:12)
[2022-12-30] MEDS: Magnesium Oxide 400 MG TAB PO SCH ×3 (12:14→20:12)
[2022-12-30] MEDS: Atorvastatin Calcium 20 MG TAB PO SCH (14:21)
[2022-12-30] MEDS: Calcitriol 0.25 MCG CAP PO SCH (14:21)
[2022-12-30] MEDS: Lidocaine 4% Patch TD SCH (14:23)
[2022-12-30 18:10] LABS: Anion Gap 11 mmol/L (10-20); BUN (Urea Nitrogen) 33 mg/dL (7.0-18.7); Calc. Creatinine Clearance 33 mL/min (70-130); Calcium 9.7 mg/dL (7.8-10.44); Carbon Dioxide 21 mmol/L (22-29); Chloride 106 mmol/L (98-107); Estimated GFR 19; Glucose 108 mg/dL (70-105); Lipase 71 U/L (8-78); Potassium 3.3 mmol/L (3.5-5.1); Sodium 135 mmol/L (136-145)
[2022-12-30] MEDS: Famotidine 20 MG TAB PO SCH (20:11)
[2022-12-30] MEDS: Famotidine/PF 20 mg/2ml Vial SLOW IVP SCH (20:12)
[2022-12-31] MEDS: Transdermal Patch Removal TOP SCH (02:56)
[2022-12-31] MEDS: metroNIDAZOLE 500 MG in Premix Bag 1 BAG IVPB SCH ×3 (06:02→22:00)
[2022-12-31] MEDS: Sodium Chloride 0.9% 1,000 ML IV SCH (08:33)
[2022-12-31 09:01] LABS: Anion Gap 9 mmol/L (10-20); BUN (Urea Nitrogen) 28 mg/dL (7.0-18.7); Calc. Creatinine Clearance 33 mL/min (70-130); Calcium 9.3 mg/dL (7.8-10.44); Carbon Dioxide 26 mmol/L (22-29); Chloride 107 mmol/L (98-107); Estimated GFR 19; Glucose 68 mg/dL (70-105); Potassium 3.2 mmol/L (3.5-5.1); Sodium 139 mmol/L (136-145)
[2022-12-31] MEDS: Insulin Glargine 30 UNITS/0.3 ML VIAL SC SCH ×2 (09:56→22:00)
[2022-12-31] MEDS ORDERED: PROPOFOL 200 MG/20 ML VIAL ONE (13:45)
[2022-12-31] MEDS ORDERED: Dextrose 50% Abboject 50 ML SYRINGE ONE (13:50)
[2022-12-31] MEDS ORDERED: Ondansetron HCl/PF 4 MG/2 ML Vial IVP PRN (15:00)
[2022-12-31] MEDS ORDERED: Promethazine HCl 25 MG/ML VIAL IM PRN (15:00)
[2022-12-31] MEDS: Lidocaine 4% Patch TD SCH (16:22)
[2022-12-31] MEDS: Sodium Bicarbonate Tab 325 MG TAB PO SCH ×3 (16:41→21:57)
[2022-12-31] MEDS: Amoxicillin/Potassium Clav 500 MG TAB PO SCH ×2 (16:41→22:13)
[2022-12-31] MEDS: Calcitriol 0.25 MCG CAP PO SCH (16:41)
[2022-12-31] MEDS: Zinc Sulfate 220 MG CAP PO SCH (16:41)
[2022-12-31] MEDS: Magnesium Oxide 400 MG TAB PO SCH ×3 (16:41→21:59)
[2022-12-31] MEDS: Atorvastatin Calcium 20 MG TAB PO SCH (16:41)
[2022-12-31] MEDS: NIFEdipine XL 30 MG TAB PO SCH (16:41)
[2022-12-31] MEDS: Carvedilol 6.25 MG TAB PO SCH ×2 (16:42→21:58)
[2022-12-31] MEDS: Heparin 5,000 UNITS/ML VIAL SC SCH ×2 (16:42→22:01)
[2022-12-31] MEDS: Ondansetron PF 4 MG/2 ML Vial IVP PRN ×2 (16:56→22:14)
[2022-12-31] MEDS: Pantoprazole 40 MG VIAL IVP SCH (22:02)
[2022-12-31] MEDS: HumaLOG 300 UNITS/3 ML VIAL SC PRN (22:02)
[2022-12-31] MEDS: tiZANidine HCl 4 MG TAB PO PRN (22:21)
[2023-01-01] MEDS: Transdermal Patch Removal TOP SCH (02:46)
[2023-01-01] MEDS: Sodium Chloride 0.9% 1,000 ML IV SCH ×2 (04:30→04:43)
[2023-01-01] MEDS: metroNIDAZOLE 500 MG in Premix Bag 1 BAG IVPB SCH ×2 (04:35→13:05)
[2023-01-01 05:02] LABS: #Eosinphils 0.1 thou/uL (0.0-0.7); #Monocytes 0.8 thou/uL (0.11-0.59); #Neutrophils 9.5 thou/uL (1.40-6.50); %Basophils 0.2 % (0.0-1.0); %Eosinophils 0.5 % (0.0-10.0); %Lymphocytes 20.5 % (21.0-51.0); %Monocytes 6.2 % (0.0-10.0); %Neutrophils 72.1 % (42.0-75.0); Hematocrit 31.5 % (36.0-47.0); Hemoglobin 10.5 g/dL (12.0-16.0); Mean Corpuscular HGB CONC 33.3 g/dL (32.0-36.0); Mean Corpuscular Hemoglobin 30.4 pg (27.0-31.0); Mean Corpuscular Volume 91.3 fl (78.0-98.0); Mean Platelet Volume 10.1 fL (7.4-10.4); Platelet Count 390 10x3/uL (130-400); RBC Distribution Width 12.7 % (11.5-14.5); Red Blood Cell (RBC) Count 3.45 mill/uL (4.20-5.40); White Blood Cell (WBC) Count 13.1 10x3/uL (4.8-10.8)
[2023-01-01 05:12] LABS: Anion Gap 10 mmol/L (10-20); BUN (Urea Nitrogen) 23 mg/dL (7.0-18.7); Calc. Creatinine Clearance 32 mL/min (70-130); Calcium 9.5 mg/dL (7.8-10.44); Carbon Dioxide 29 mmol/L (22-29); Chloride 105 mmol/L (98-107); Estimated GFR 19; Glucose 98 mg/dL (70-105); Potassium 3.1 mmol/L (3.5-5.1); Sodium 141 mmol/L (136-145)
[2023-01-01] MEDS ORDERED: Potassium Chloride 40 MEQ in Premix Bag 1 BAG IVPB SCH (08:00)
[2023-01-01] MEDS: NIFEdipine XL 30 MG TAB PO SCH (09:33)
[2023-01-01] MEDS: Sodium Bicarbonate Tab 325 MG TAB PO SCH ×2 (09:33→14:39)
[2023-01-01] MEDS: Calcitriol 0.25 MCG CAP PO SCH (09:33)
[2023-01-01] MEDS: Carvedilol 6.25 MG TAB PO SCH (09:34)
[2023-01-01] MEDS: Zinc Sulfate 220 MG CAP PO SCH (09:34)
[2023-01-01] MEDS: Atorvastatin Calcium 20 MG TAB PO SCH (09:34)
[2023-01-01] MEDS: Magnesium Oxide 400 MG TAB PO SCH (09:34)
[2023-01-01] MEDS: Insulin Glargine 30 UNITS/0.3 ML VIAL SC SCH (09:35)
[2023-01-01] MEDS: Heparin 5,000 UNITS/ML VIAL SC SCH ×2 (09:35→14:40)
[2023-01-01] MEDS: Pantoprazole 40 MG VIAL IVP SCH (09:35)
[2023-01-01] MEDS: Amoxicillin/Potassium Clav 500 MG TAB PO SCH (09:36)
[2023-01-01 11:33] VITALS: BP 140/82; TEMP 98.3
[2023-01-01] MEDS: Lidocaine 4% Patch TD SCH (13:04)
== END 2023-01-01 20:05 | disposition home or self-care (01) | DRG 178 ==
LOC: ERS 12:39 → 2SW 17:27 → OBSVTOIN 12-26 10:19 → 2SW 12-26 17:38
PROVIDERS: ADMIT Hospitalist; ATTEND Internal Medicine
PROC: 8E0ZXY6 Isolation (ICD-10-PCS; 2022-12-26)
PROC: 02HV33Z Insertion of Infusion Device into Superior Vena Cava, Percutaneous Approach (ICD-10-PCS; principal; 2022-12-29)
PROC: B548ZZA Ultrasonography of Superior Vena Cava, Guidance (ICD-10-PCS; 2022-12-29)
PROC: B5181ZA Fluoroscopy of Superior Vena Cava using Low Osmolar Contrast, Guidance (ICD-10-PCS; 2022-12-29)
PROC: 0DB78ZX Excision of Stomach, Pylorus, Via Natural or Artificial Opening Endoscopic, Diagnostic (ICD-10-PCS; 2022-12-31)
PROC: 0DB98ZX Excision of Duodenum, Via Natural or Artificial Opening Endoscopic, Diagnostic (ICD-10-PCS; 2022-12-31)
PROC: 0DB38ZX Excision of Lower Esophagus, Via Natural or Artificial Opening Endoscopic, Diagnostic (ICD-10-PCS; 2022-12-31)
DX: U07.1 COVID-19 (principal); E87.20 Acidosis, unspecified; N17.9 Acute kidney failure, unspecified; N18.4 Chronic kidney disease, stage 4 (severe); K22.10 Ulcer of esophagus without bleeding; N25.81 Secondary hyperparathyroidism of renal origin; K29.80 Duodenitis without bleeding; K52.9 Noninfective gastroenteritis and colitis, unspecified; E87.6 Hypokalemia; E11.65 Type 2 diabetes mellitus with hyperglycemia; I12.9 Hypertensive chronic kidney disease with stage 1 through stage 4 chronic kidney disease, or unspecified chronic kidney disease; E78.5 Hyperlipidemia, unspecified; E11.40 Type 2 diabetes mellitus with diabetic neuropathy, unspecified; K21.9 Gastro-esophageal reflux disease without esophagitis; E11.22 Type 2 diabetes mellitus with diabetic chronic kidney disease; F32.A Depression, unspecified; E66.9 Obesity, unspecified; E83.42 Hypomagnesemia; D63.1 Anemia in chronic kidney disease; E87.5 Hyperkalemia; K29.70 Gastritis, unspecified, without bleeding; Z87.891 Personal history of nicotine dependence; Z79.899 Other long term (current) drug therapy; Z79.4 Long term (current) use of insulin; Z79.82 Long term (current) use of aspirin; Z82.49 Family history of ischemic heart disease and other diseases of the circulatory system; Z83.3 Family history of diabetes mellitus; Z90.710 Acquired absence of both cervix and uterus; Z90.89 Acquired absence of other organs; Z68.33 Body mass index [BMI] 33.0-33.9, adult; Z79.2 Long term (current) use of antibiotics; E89.0 Postprocedural hypothyroidism
CPT/HCPCS: 36415; 36416; 36569; 71045; 74176; 78451; 80048; 80053; 81001; 82306; 83036; 83605; 83690; 83735; 83970; 84100; 84484; 85014; 85018; 85025; 85049; 85379; 86140; 88305; 88312; 88341; 88342; 93005; 96361; 96372; 96374; 96375; A9540; C9113; G0378; J0696; J1644; J1650; J1815; J1885; J2405; J2704; J3475; J3480; J3490; J7050; J7070; J7999; Q0169; S0028

== ENCOUNTER 2023-03-14 13:17 | Inpatient (IN) | payer OTHER ==
[2023-03-14 14:32] LABS: #Monocytes 0.5 thou/uL (0.11-0.59); #Neutrophils 9.5 thou/uL (1.40-6.50); %Basophils 0.2 % (0.0-1.0); %Eosinophils 0.3 % (0.0-10.0); %Lymphocytes 13.5 % (21.0-51.0); %Monocytes 4.5 % (0.0-10.0); %Neutrophils 81.2 % (42.0-75.0); Hematocrit 33.3 % (36.0-47.0); Mean Corpuscular Hemoglobin 30.6 pg (27.0-31.0); Mean Corpuscular Volume 92.8 fl (78.0-98.0); Platelet Count 191 10x3/uL (130-400); RBC Distribution Width 12.6 % (11.5-14.5); Red Blood Cell (RBC) Count 3.59 mill/uL (4.20-5.40); White Blood Cell (WBC) Count 11.7 10x3/uL (4.8-10.8)
[2023-03-14] MEDS ORDERED: Ondansetron PF 4 MG/2 ML Vial ONE (14:36)
[2023-03-14 14:57] LABS: ALT (SGPT) Less than 7 U/L (8-55); AST (SGOT) 10 U/L (5-34); Albumin 3.1 g/dL (3.5-5.0); Alkaline Phosphatase 177 U/L (40-110); Anion Gap 17 mmol/L (10-20); BUN (Urea Nitrogen) 57 mg/dL (7.0-18.7); Bilirubin, Total 0.5 mg/dL (0.2-1.2); Calc. Creatinine Clearance 0 mL/min (70-130); Calcium 9.6 mg/dL (7.8-10.44); Carbon Dioxide 18 mmol/L (22-29); Chloride 98 mmol/L (98-107); Estimated GFR 12; Globulin 3.9 g/dL (2.4-3.5); Lipase 84 U/L (8-78); Sodium 129 mmol/L (136-145)
[2023-03-14 14:59] LABS: Troponin I Less than 0.010 ng/mL (< 0.028)
[2023-03-14 15:17] LABS: Glucose 602 mg/dL (70-105)
[2023-03-14] MEDS ORDERED: Pantoprazole 40 MG VIAL ONE (15:26)
[2023-03-14] MEDS ORDERED: Metoclopramide HCl 10 MG/2 ML VIAL ONE (15:26)
[2023-03-14] MEDS ORDERED: Ondansetron PF 4 MG/2 ML Vial IVP PRN (16:11)
[2023-03-14] MEDS ORDERED: Promethazine HCl 12.5 MG in Sodium Chloride 0.9% 50 ML IVPB PRN (16:15)
[2023-03-14] MEDS ORDERED: HumaLOG 300 UNITS/3 ML VIAL SC PRN (16:16)
[2023-03-14] MEDS ORDERED: Glucagon 1 MG/ML KIT IM PRN (16:16)
[2023-03-14] MEDS ORDERED: Dextrose 5% in Water 1,000 ML IV PRN (16:16)
[2023-03-14] MEDS ORDERED: Dextrose 50% Abboject 50 ML SYRINGE SLOW IVP PRN (16:16)
[2023-03-14 17:31] LABS: Hemoglobin A1c 10.3 % (4.0-6.0)
[2023-03-14 17:56] LABS: Actual Bicarbonate (HCO3v) 15.6 mEq/L (22-28); Base Excess -9.9 mEq/L (-2.0 to +3.0); Calcium, Ionized (venous) 1.08 mmol/L (1.16-1.32); Chloride (VBG) 101 mmol/L (98-106); Hematocrit-VBG 40 % (36.0-47.0); Hemoglobin (Hb) 13.5 g/dL (11.7-16.0); Potassium (VBG) 4.95 mmol/L (3.70-5.30); Sodium 132 mmol/L (133-146); pH (venous) 7.291 (7.32-7.43)
[2023-03-14 20:06] LABS: HBSAB Concentration Less than 8.00 mIU/mL; HBSAg Index 0.23 S/CO (0-0.99); Hep B Core Total Ab Non-Reactive (NonReactive); Hep B Core Total Index 0.07 S/CO (0-0.79); Hep B Surf AB Non-Reactive (NonReactive); Hep B Surf Ag Non-Reactive S/CO (NonReactive); Hep C IgG Ab Non-Reactive S/CO (NonReactive); Hep C Index 0.05 S/CO (0-0.79)
[2023-03-14] MEDS ORDERED: Sodium Chloride 0.9% 1,000 ML IV SCH (21:00)
[2023-03-14] MEDS ORDERED: Morphine 2 MG/ML VIAL SLOW IVP SCH (21:00)
[2023-03-15] MEDS: Acetaminophen 325 MG TAB PO PRN ×2 (01:10→19:42)
[2023-03-15] MEDS ORDERED: Ondansetron ODT 4 MG TAB PO PRN (01:14)
[2023-03-15] MEDS ORDERED: Electrolyte Replacement Protocol 1 EACH FS SCH (01:15)
[2023-03-15 04:25] LABS: #Eosinphils 0.1 thou/uL (0.0-0.7); #Monocytes 0.6 thou/uL (0.11-0.59); #Neutrophils 6.4 thou/uL (1.40-6.50); %Basophils 0.2 % (0.0-1.0); %Eosinophils 1.2 % (0.0-10.0); %Lymphocytes 23.8 % (21.0-51.0); %Monocytes 6.2 % (0.0-10.0); %Neutrophils 68.4 % (42.0-75.0); Hematocrit 29.5 % (36.0-47.0); Hemoglobin 9.8 g/dL (12.0-16.0); Mean Corpuscular HGB CONC 33.2 g/dL (32.0-36.0); Mean Corpuscular Hemoglobin 30.3 pg (27.0-31.0); Mean Corpuscular Volume 91.3 fl (78.0-98.0); Mean Platelet Volume 10.6 fL (7.4-10.4); Platelet Count 172 10x3/uL (130-400); RBC Distribution Width 12.4 % (11.5-14.5); Red Blood Cell (RBC) Count 3.23 mill/uL (4.20-5.40); White Blood Cell (WBC) Count 9.3 10x3/uL (4.8-10.8)
[2023-03-15 05:10] LABS: Anion Gap 15 mmol/L (10-20); BUN (Urea Nitrogen) 37 mg/dL (7.0-18.7); Calc. Creatinine Clearance 31 mL/min (70-130); Calcium 9.3 mg/dL (7.8-10.44); Carbon Dioxide 22 mmol/L (22-29); Chloride 104 mmol/L (98-107); Estimated GFR 17; Glucose 276 mg/dL (70-105); Magnesium 1.4 mg/dL (1.6-2.6); Potassium 3.5 mmol/L (3.5-5.1); Sodium 137 mmol/L (136-145)
[2023-03-15] MEDS: Nicotine 14 MG PATCH TD SCH ×2 (06:18→19:42)
[2023-03-15] MEDS: HYDROcodone/Acetaminophen 5/325 mg Tablet PO PRN ×2 (06:18→23:09)
[2023-03-15] MEDS: Insulin Glargine 30 UNITS/0.3 ML VIAL SC SCH (09:01)
[2023-03-15] MEDS ORDERED: Heparin 10,000 UNITS/ 10 ML VIAL ONE (09:02)
[2023-03-15] MEDS ORDERED: Apixaban 5 MG TAB PO SCH (09:45)
[2023-03-15] MEDS: Carvedilol 6.25 MG TAB PO SCH (19:42)
[2023-03-15] MEDS: Apixaban 5 MG TAB PO SCH (19:43)
[2023-03-16] MEDS ORDERED: Melatonin 3 MG TAB PO PRN (02:47)
[2023-03-16 05:05] LABS: #Eosinphils 0.2 thou/uL (0.0-0.7); #Monocytes 0.6 thou/uL (0.11-0.59); #Neutrophils 3.8 thou/uL (1.40-6.50); %Basophils 0.4 % (0.0-1.0); %Eosinophils 2.5 % (0.0-10.0); %Lymphocytes 39.2 % (21.0-51.0); %Monocytes 7.5 % (0.0-10.0); %Neutrophils 50.1 % (42.0-75.0); Hematocrit 30.7 % (36.0-47.0); Hemoglobin 9.9 g/dL (12.0-16.0); Mean Corpuscular HGB CONC 32.2 g/dL (32.0-36.0); Mean Corpuscular Hemoglobin 29.8 pg (27.0-31.0); Mean Corpuscular Volume 92.5 fl (78.0-98.0); Mean Platelet Volume 10.8 fL (7.4-10.4); Platelet Count 185 10x3/uL (130-400); RBC Distribution Width 12.3 % (11.5-14.5); Red Blood Cell (RBC) Count 3.32 mill/uL (4.20-5.40); White Blood Cell (WBC) Count 7.6 10x3/uL (4.8-10.8)
[2023-03-16 05:19] LABS: Anion Gap 12 mmol/L (10-20); BUN (Urea Nitrogen) 27 mg/dL (7.0-18.7); Calc. Creatinine Clearance 32 mL/min (70-130); Calcium 9.5 mg/dL (7.8-10.44); Carbon Dioxide 24 mmol/L (22-29); Chloride 102 mmol/L (98-107); Estimated GFR 17; Glucose 135 mg/dL (70-105); Potassium 3.4 mmol/L (3.5-5.1); Sodium 135 mmol/L (136-145)
[2023-03-16] MEDS: Apixaban 5 MG TAB PO SCH ×2 (09:03→22:00)
[2023-03-16] MEDS: Atorvastatin Calcium 20 MG TAB PO SCH (09:03)
[2023-03-16] MEDS: Carvedilol 6.25 MG TAB PO SCH ×2 (09:04→22:00)
[2023-03-16] MEDS: Insulin Glargine 30 UNITS/0.3 ML VIAL SC SCH (09:04)
[2023-03-16] MEDS ORDERED: Potassium Chloride 20 MEQ TAB PO SCH (09:45)
[2023-03-16] MEDS ORDERED: Tuberculin PPD 0.1 ML VIAL I-DERMAL SCH ×3 (09:45→18:00)
[2023-03-16] MEDS: ALPRAZolam 0.25 MG TAB PO PRN (10:04)
[2023-03-16] MEDS ORDERED: Pantoprazole 40 MG VIAL IVP SCH (10:30)
[2023-03-16] MEDS: Acetaminophen 325 MG TAB PO PRN ×2 (11:52→19:06)
[2023-03-16] MEDS: Nicotine 14 MG PATCH TD SCH (17:56)
[2023-03-17] MEDS: Acetaminophen 325 MG TAB PO PRN ×2 (01:36→09:24)
[2023-03-17] MEDS: ALPRAZolam 0.25 MG TAB PO PRN (01:36)
[2023-03-17 05:12] LABS: #Eosinphils 0.2 thou/uL (0.0-0.7); #Monocytes 0.4 thou/uL (0.11-0.59); #Neutrophils 3.9 thou/uL (1.40-6.50); %Basophils 0.6 % (0.0-1.0); %Eosinophils 2.1 % (0.0-10.0); %Lymphocytes 36.7 % (21.0-51.0); %Monocytes 5.5 % (0.0-10.0); %Neutrophils 54.8 % (42.0-75.0); Hematocrit 31.8 % (36.0-47.0); Hemoglobin 10.3 g/dL (12.0-16.0); Mean Corpuscular HGB CONC 32.4 g/dL (32.0-36.0); Mean Corpuscular Hemoglobin 30.2 pg (27.0-31.0); Mean Corpuscular Volume 93.3 fl (78.0-98.0); Mean Platelet Volume 10.4 fL (7.4-10.4); Platelet Count 224 10x3/uL (130-400); RBC Distribution Width 12.3 % (11.5-14.5); Red Blood Cell (RBC) Count 3.41 mill/uL (4.20-5.40); White Blood Cell (WBC) Count 7.1 10x3/uL (4.8-10.8)
[2023-03-17] MEDS: HYDROcodone/Acetaminophen 5/325 mg Tablet PO PRN (05:16)
[2023-03-17 05:42] LABS: Anion Gap 14 mmol/L (10-20); BUN (Urea Nitrogen) 36 mg/dL (7.0-18.7); Calc. Creatinine Clearance 25 mL/min (70-130); Calcium 9.6 mg/dL (7.8-10.44); Carbon Dioxide 24 mmol/L (22-29); Chloride 100 mmol/L (98-107); Estimated GFR 13; Glucose 83 mg/dL (70-105); Potassium 3.3 mmol/L (3.5-5.1); Sodium 135 mmol/L (136-145)
[2023-03-17] MEDS ORDERED: Pantoprazole 40 MG VIAL IVP SCH (09:00)
[2023-03-17] MEDS: Atorvastatin Calcium 20 MG TAB PO SCH (09:23)
[2023-03-17] MEDS: Apixaban 5 MG TAB PO SCH ×2 (09:24→21:25)
[2023-03-17] MEDS: Carvedilol 6.25 MG TAB PO SCH ×2 (09:25→21:25)
[2023-03-17] MEDS: Insulin Glargine 30 UNITS/0.3 ML VIAL SC SCH (09:26)
[2023-03-17] MEDS: Nicotine 14 MG PATCH TD SCH (21:25)
[2023-03-18] MEDS: Acetaminophen 325 MG TAB PO PRN ×2 (01:49→15:55)
[2023-03-18 04:45] LABS: #Eosinphils 0.1 thou/uL (0.0-0.7); #Monocytes 0.4 thou/uL (0.11-0.59); #Neutrophils 5.3 thou/uL (1.40-6.50); %Basophils 0.5 % (0.0-1.0); %Eosinophils 1.2 % (0.0-10.0); %Lymphocytes 27.5 % (21.0-51.0); %Monocytes 5.2 % (0.0-10.0); %Neutrophils 65.1 % (42.0-75.0); Hematocrit 31.8 % (36.0-47.0); Hemoglobin 10.1 g/dL (12.0-16.0); Mean Corpuscular HGB CONC 31.8 g/dL (32.0-36.0); Mean Corpuscular Hemoglobin 30.2 pg (27.0-31.0); Mean Corpuscular Volume 95.2 fl (78.0-98.0); Mean Platelet Volume 10.4 fL (7.4-10.4); Platelet Count 238 10x3/uL (130-400); RBC Distribution Width 12.1 % (11.5-14.5); Red Blood Cell (RBC) Count 3.34 mill/uL (4.20-5.40); White Blood Cell (WBC) Count 8.1 10x3/uL (4.8-10.8)
[2023-03-18 05:12] LABS: Anion Gap 17 mmol/L (10-20); BUN (Urea Nitrogen) 24 mg/dL (7.0-18.7); Calc. Creatinine Clearance 32 mL/min (70-130); Carbon Dioxide 22 mmol/L (22-29); Chloride 98 mmol/L (98-107); Estimated GFR 17; Glucose 292 mg/dL (70-105); Potassium 3.7 mmol/L (3.5-5.1); Sodium 133 mmol/L (136-145)
[2023-03-18] MEDS ORDERED: FLU VACC QS2023-24(6MOS UP)/PF 60 MCG/0.5 ML SYRINGE IM ONE (09:00)
[2023-03-18] MEDS: Apixaban 5 MG TAB PO SCH ×2 (09:06→22:37)
[2023-03-18] MEDS: HumaLOG 300 UNITS/3 ML VIAL SC PRN ×2 (09:06→12:57)
[2023-03-18] MEDS: Carvedilol 6.25 MG TAB PO SCH ×2 (09:06→22:37)
[2023-03-18] MEDS: Atorvastatin Calcium 20 MG TAB PO SCH (09:06)
[2023-03-18] MEDS: Insulin Glargine 30 UNITS/0.3 ML VIAL SC SCH (09:07)
[2023-03-18] MEDS: Nicotine 14 MG PATCH TD SCH (22:38)
[2023-03-18] MEDS: ALPRAZolam 0.25 MG TAB PO PRN (22:46)
[2023-03-19 05:46] LABS: #Eosinphils 0.1 thou/uL (0.0-0.7); #Monocytes 0.5 thou/uL (0.11-0.59); #Neutrophils 4.8 thou/uL (1.40-6.50); %Basophils 0.2 % (0.0-1.0); %Eosinophils 1.5 % (0.0-10.0); %Lymphocytes 36.1 % (21.0-51.0); %Monocytes 5.9 % (0.0-10.0); %Neutrophils 55.8 % (42.0-75.0); Hematocrit 31.4 % (36.0-47.0); Hemoglobin 10.2 g/dL (12.0-16.0); Mean Corpuscular HGB CONC 32.5 g/dL (32.0-36.0); Mean Corpuscular Hemoglobin 30.4 pg (27.0-31.0); Mean Corpuscular Volume 93.5 fl (78.0-98.0); Mean Platelet Volume 10.3 fL (7.4-10.4); Platelet Count 268 10x3/uL (130-400); RBC Distribution Width 12.2 % (11.5-14.5); Red Blood Cell (RBC) Count 3.36 mill/uL (4.20-5.40); White Blood Cell (WBC) Count 8.5 10x3/uL (4.8-10.8)
[2023-03-19 06:10] LABS: Anion Gap 15 mmol/L (10-20); BUN (Urea Nitrogen) 35 mg/dL (7.0-18.7); Calc. Creatinine Clearance 24 mL/min (70-130); Carbon Dioxide 26 mmol/L (22-29); Chloride 98 mmol/L (98-107); Potassium 3.7 mmol/L (3.5-5.1); Sodium 135 mmol/L (136-145)
[2023-03-19 06:11] LABS: Calcium 9.8 mg/dL (7.8-10.44); Estimated GFR 12; Glucose 179 mg/dL (70-105)
[2023-03-19 06:24] VITALS: BMI 34.5
[2023-03-19] MEDS: Carvedilol 6.25 MG TAB PO SCH (08:31)
[2023-03-19] MEDS ORDERED: READ PPD TEST SITE PO SCH (09:00)
[2023-03-19] MEDS: Atorvastatin Calcium 20 MG TAB PO SCH (09:08)
[2023-03-19] MEDS: Apixaban 5 MG TAB PO SCH (09:08)
[2023-03-19] MEDS: Insulin Glargine 30 UNITS/0.3 ML VIAL SC SCH (09:08)
[2023-03-19] MEDS: Acetaminophen 325 MG TAB PO PRN ×2 (09:15→16:13)
[2023-03-19 16:02] VITALS: BP 126/72; TEMP 98.7
[2023-03-19] MEDS: HumaLOG 300 UNITS/3 ML VIAL SC PRN (17:00)
== END 2023-03-19 19:00 | disposition home or self-care (01) | DRG 683 ==
LOC: ERS 13:17 → 2NO 16:11
PROVIDERS: ADMIT Internal Medicine; ATTEND Internal Medicine
DX: N17.9 Acute kidney failure, unspecified (principal); E87.1 Hypo-osmolality and hyponatremia; I82.B12 Acute embolism and thrombosis of left subclavian vein; I12.0 Hypertensive chronic kidney disease with stage 5 chronic kidney disease or end stage renal disease; E87.20 Acidosis, unspecified; I82.A12 Acute embolism and thrombosis of left axillary vein; N18.6 End stage renal disease; E11.22 Type 2 diabetes mellitus with diabetic chronic kidney disease; E11.40 Type 2 diabetes mellitus with diabetic neuropathy, unspecified; F17.210 Nicotine dependence, cigarettes, uncomplicated; E86.0 Dehydration; E11.65 Type 2 diabetes mellitus with hyperglycemia; E78.5 Hyperlipidemia, unspecified; E03.9 Hypothyroidism, unspecified; M41.9 Scoliosis, unspecified; E66.9 Obesity, unspecified; D64.9 Anemia, unspecified; K21.9 Gastro-esophageal reflux disease without esophagitis; Z98.890 Other specified postprocedural states; Z79.899 Other long term (current) drug therapy; Z79.84 Long term (current) use of oral hypoglycemic drugs; Z79.4 Long term (current) use of insulin; Z90.710 Acquired absence of both cervix and uterus; Z83.3 Family history of diabetes mellitus; Z68.34 Body mass index [BMI] 34.0-34.9, adult; Z99.2 Dependence on renal dialysis; Z71.6 Tobacco abuse counseling
CPT/HCPCS: 36415; 36416; 71045; 74176; 80048; 80053; 82010; 82805; 83036; 83605; 83690; 83735; 84443; 84484; 85025; 86580; 86704; 90935; 93005; 96361; 96374; 96375; C9113; G0257; J1644; J1815; J2405; J2765

== ENCOUNTER 2023-04-13 01:21 | Inpatient (IN) | payer OTHER ==
[2023-04-13] MEDS ORDERED: Morphine 4 MG/ML VIAL ONE (02:51)
[2023-04-13] MEDS ORDERED: Ondansetron PF 4 MG/2 ML Vial ONE (02:51)
[2023-04-13 03:04] LABS: #Eosinphils 0.1 thou/uL (0.0-0.7); #Monocytes 0.6 thou/uL (0.11-0.59); #Neutrophils 9.2 thou/uL (1.40-6.50); %Basophils 0.2 % (0.0-1.0); %Eosinophils 0.8 % (0.0-10.0); %Lymphocytes 15.7 % (21.0-51.0); %Monocytes 5.1 % (0.0-10.0); %Neutrophils 77.8 % (42.0-75.0); Hematocrit 21.4 % (36.0-47.0); Hemoglobin 6.8 g/dL (12.0-16.0); Mean Corpuscular HGB CONC 31.8 g/dL (32.0-36.0); Mean Corpuscular Hemoglobin 31.1 pg (27.0-31.0); Mean Corpuscular Volume 97.7 fl (78.0-98.0); Mean Platelet Volume 9.9 fL (7.4-10.4); Platelet Count 237 10x3/uL (130-400); RBC Distribution Width 14.5 % (11.5-14.5); Red Blood Cell (RBC) Count 2.19 mill/uL (4.20-5.40); White Blood Cell (WBC) Count 11.8 10x3/uL (4.8-10.8)
[2023-04-13 03:28] LABS: ALT (SGPT) Less than 7 U/L (8-55); AST (SGOT) 29 U/L (5-34); Alkaline Phosphatase 144 U/L (40-110); Anion Gap 15 mmol/L (10-20); BUN (Urea Nitrogen) 32 mg/dL (7.0-18.7); Bilirubin, Total 1.1 mg/dL (0.2-1.2); Calc. Creatinine Clearance 0 mL/min (70-130); Calcium 8.9 mg/dL (7.8-10.44); Carbon Dioxide 24 mmol/L (22-29); Chloride 99 mmol/L (98-107); Estimated GFR 9; Globulin 3.4 g/dL (2.4-3.5); Glucose 65 mg/dL (70-105); Lipase 558 U/L (8-78); Potassium 3.1 mmol/L (3.5-5.1); Protein, Total 6.4 g/dL (6.0-8.3); Sodium 135 mmol/L (136-145)
[2023-04-13 03:29] LABS: SARS-CoV-2 NAA Rapid Test Not Detected (NotDetected)
[2023-04-13 03:31] LABS: Troponin I 0.039 ng/mL (< 0.028)
[2023-04-13] MEDS ORDERED: Potassium Chloride 20 MEQ TAB ONE (06:47)
[2023-04-13] MEDS ORDERED: Dextrose 50% Abboject 50 ML SYRINGE SLOW IVP SCH (07:50)
[2023-04-13 08:22] VITALS: BMI 36.1
[2023-04-13] MEDS ORDERED: Acetaminophen 325 MG TAB PO PRN (08:41)
[2023-04-13] MEDS ORDERED: Apixaban 5 MG TAB PO SCH (09:00)
[2023-04-13] MEDS ORDERED: tiZANidine HCl 4 MG TAB PO PRN (09:02)
[2023-04-13] MEDS: Pantoprazole 40 MG VIAL IVP SCH (09:13)
[2023-04-13] MEDS: Atorvastatin Calcium 20 MG TAB PO SCH (09:13)
[2023-04-13] MEDS: Carvedilol 6.25 MG TAB PO SCH ×2 (09:13→22:44)
[2023-04-13] MEDS: Morphine 4 MG/ML VIAL SLOW IVP PRN ×3 (09:13→22:45)
[2023-04-13 09:41] LABS: Troponin I 0.038 ng/mL (< 0.028)
[2023-04-13] MEDS ORDERED: Iopamidol-370 76% 500 ML MDV (1 ML CHARGE) ONE (10:47)
[2023-04-13 11:01] LABS: Cardiac Risk 2.9 (Less than 4.5)
[2023-04-13] MEDS: Apixaban 5 MG TAB PO SCH ×2 (13:14→22:44)
[2023-04-13 14:53] LABS: Hep B Core Total Ab Non-Reactive (NonReactive); Hep B Core Total Index 0.13 S/CO (0-0.79)
[2023-04-13 14:54] LABS: HBSAg Index 0.34 S/CO (0-0.99); Hep B Surf Ag Non-Reactive S/CO (NonReactive)
[2023-04-13 14:55] LABS: Hep C IgG Ab Non-Reactive S/CO (NonReactive); Hep C Index 0.07 S/CO (0-0.79)
[2023-04-13 15:08] LABS: HBSAB Concentration 55.32 mIU/mL; Hep B Surf AB Reactive (NonReactive)
[2023-04-13] MEDS: Lactated Ringer's 1,000 ML IV SCH ×2 (18:00→18:02)
[2023-04-14] MEDS: Morphine 4 MG/ML VIAL SLOW IVP PRN ×3 (03:57→18:51)
[2023-04-14 04:22] LABS: #Eosinphils 0.1 thou/uL (0.0-0.7); #Monocytes 0.8 thou/uL (0.11-0.59); #Neutrophils 9.3 thou/uL (1.40-6.50); %Basophils 0.2 % (0.0-1.0); %Eosinophils 0.6 % (0.0-10.0); %Lymphocytes 17.2 % (21.0-51.0); %Monocytes 6.2 % (0.0-10.0); %Neutrophils 75.5 % (42.0-75.0); Hematocrit 28.4 % (36.0-47.0); Hemoglobin 8.9 g/dL (12.0-16.0); Mean Corpuscular HGB CONC 31.3 g/dL (32.0-36.0); Mean Corpuscular Hemoglobin 30.3 pg (27.0-31.0); Mean Corpuscular Volume 96.6 fl (78.0-98.0); Mean Platelet Volume 10.1 fL (7.4-10.4); Platelet Count 231 10x3/uL (130-400); RBC Distribution Width 18.1 % (11.5-14.5); Red Blood Cell (RBC) Count 2.94 mill/uL (4.20-5.40); White Blood Cell (WBC) Count 12.3 10x3/uL (4.8-10.8)
[2023-04-14 04:43] LABS: Albumin 2.8 g/dL (3.5-5.0); Anion Gap 16 mmol/L (10-20); BUN (Urea Nitrogen) 13 mg/dL (7.0-18.7); BUN/Creatinine Ratio 4.68; Calc. Creatinine Clearance 38 mL/min (70-130); Calcium 9.3 mg/dL (7.8-10.44); Carbon Dioxide 22 mmol/L (22-29); Chloride 102 mmol/L (98-107); Estimated GFR 21; Glucose 115 mg/dL (70-105); Phosphorus 2.9 mg/dL (2.3-4.7); Potassium 3.8 mmol/L (3.5-5.1); Sodium 136 mmol/L (136-145)
[2023-04-14] MEDS: Atorvastatin Calcium 20 MG TAB PO SCH (10:25)
[2023-04-14] MEDS: Carvedilol 6.25 MG TAB PO SCH ×2 (10:26→21:58)
[2023-04-14] MEDS: Apixaban 5 MG TAB PO SCH ×2 (10:26→21:58)
[2023-04-14] MEDS: Pantoprazole 40 MG VIAL IVP SCH (10:26)
[2023-04-14] MEDS: Ondansetron PF 4 MG/2 ML Vial IVP PRN ×2 (11:43→22:04)
[2023-04-14] MEDS: HYDROcodone/Acetaminophen 5/325 mg Tablet PO PRN (21:58)
[2023-04-15 05:24] LABS: #Eosinphils 0.2 thou/uL (0.0-0.7); #Monocytes 0.5 thou/uL (0.11-0.59); #Neutrophils 6.6 thou/uL (1.40-6.50); %Basophils 0.3 % (0.0-1.0); %Eosinophils 1.7 % (0.0-10.0); %Lymphocytes 19.5 % (21.0-51.0); %Monocytes 5.9 % (0.0-10.0); %Neutrophils 72.4 % (42.0-75.0); Hematocrit 28.2 % (36.0-47.0); Hemoglobin 8.4 g/dL (12.0-16.0); Mean Corpuscular HGB CONC 29.8 g/dL (32.0-36.0); Mean Corpuscular Hemoglobin 30.1 pg (27.0-31.0); Mean Platelet Volume 10.1 fL (7.4-10.4); Platelet Count 257 10x3/uL (130-400); RBC Distribution Width 18.1 % (11.5-14.5); Red Blood Cell (RBC) Count 2.79 mill/uL (4.20-5.40)
[2023-04-15 05:32] LABS: Mean Corpuscular Volume 101.1 fl (78.0-98.0)
[2023-04-15 05:51] LABS: Anion Gap 16 mmol/L (10-20); BUN (Urea Nitrogen) 20 mg/dL (7.0-18.7); Calc. Creatinine Clearance 31 mL/min (70-130); Calcium 9.5 mg/dL (7.8-10.44); Carbon Dioxide 22 mmol/L (22-29); Chloride 101 mmol/L (98-107); Estimated GFR 16; Glucose 118 mg/dL (70-105); Potassium 3.7 mmol/L (3.5-5.1); Sodium 135 mmol/L (136-145)
[2023-04-15] MEDS: HYDROcodone/Acetaminophen 5/325 mg Tablet PO PRN ×3 (06:46→21:17)
[2023-04-15] MEDS ORDERED: Heparin 10,000 UNITS/ 10 ML VIAL ONE (08:57)
[2023-04-15] MEDS ORDERED: EPOETIN ALFA-EPBX 10,000 UNITS/ML VIAL IVP SCH (10:00)
[2023-04-15] MEDS ORDERED: EPOETIN ALFA-EPBX 10,000 UNITS/ML VIAL SC SCH (10:00)
[2023-04-15] MEDS: Pantoprazole 40 MG VIAL IVP SCH (16:11)
[2023-04-15] MEDS: Lactated Ringer's 1,000 ML IV SCH (16:19)
[2023-04-15] MEDS: Carvedilol 6.25 MG TAB PO SCH ×2 (16:19→21:12)
[2023-04-15] MEDS: Apixaban 5 MG TAB PO SCH ×2 (16:19→21:12)
[2023-04-15] MEDS: Atorvastatin Calcium 20 MG TAB PO SCH (16:19)
[2023-04-16] MEDS: Lactated Ringer's 1,000 ML IV SCH (03:53)
[2023-04-16 07:33] VITALS: TEMP 98.2
[2023-04-16] MEDS: Atorvastatin Calcium 20 MG TAB PO SCH (08:45)
[2023-04-16] MEDS: Apixaban 5 MG TAB PO SCH (08:45)
[2023-04-16] MEDS: Pantoprazole 40 MG VIAL IVP SCH (08:45)
[2023-04-16] MEDS: Carvedilol 6.25 MG TAB PO SCH (08:45)
[2023-04-16] MEDS: HYDROcodone/Acetaminophen 5/325 mg Tablet PO PRN (09:05)
[2023-04-16 11:27] VITALS: BP 168/78
[2023-04-18] MEDS ORDERED: EPOETIN ALFA-EPBX 10,000 UNITS/ML VIAL IVP SCH (12:00)
== END 2023-04-16 12:50 | disposition home or self-care (01) | DRG 438 ==
LOC: ERS 01:21 → SUATTDRO 01:21 → 2NO 06:43
PROVIDERS: ADMIT Internal Medicine; ATTEND Internal Medicine
PROC: 30233N1 Transfusion of Nonautologous Red Blood Cells into Peripheral Vein, Percutaneous Approach (ICD-10-PCS; principal; 2023-04-13)
DX: K85.90 Acute pancreatitis without necrosis or infection, unspecified (principal); N18.6 End stage renal disease; I13.2 Hypertensive heart and chronic kidney disease with heart failure and with stage 5 chronic kidney disease, or end stage renal disease; I82.622 Acute embolism and thrombosis of deep veins of left upper extremity; E87.1 Hypo-osmolality and hyponatremia; I50.32 Chronic diastolic (congestive) heart failure; D63.1 Anemia in chronic kidney disease; E11.22 Type 2 diabetes mellitus with diabetic chronic kidney disease; E03.9 Hypothyroidism, unspecified; E11.40 Type 2 diabetes mellitus with diabetic neuropathy, unspecified; K21.9 Gastro-esophageal reflux disease without esophagitis; D72.829 Elevated white blood cell count, unspecified; M41.9 Scoliosis, unspecified; M54.9 Dorsalgia, unspecified; F17.210 Nicotine dependence, cigarettes, uncomplicated; E88.09 Other disorders of plasma-protein metabolism, not elsewhere classified; E11.649 Type 2 diabetes mellitus with hypoglycemia without coma; G47.33 Obstructive sleep apnea (adult) (pediatric); Z99.2 Dependence on renal dialysis; Z11.52 Encounter for screening for COVID-19; Z79.899 Other long term (current) drug therapy; Z79.4 Long term (current) use of insulin; Z79.2 Long term (current) use of antibiotics; Z79.84 Long term (current) use of oral hypoglycemic drugs; Z90.710 Acquired absence of both cervix and uterus; Z98.890 Other specified postprocedural states; Z98.891 History of uterine scar from previous surgery; Z83.3 Family history of diabetes mellitus; Z82.49 Family history of ischemic heart disease and other diseases of the circulatory system; Z80.9 Family history of malignant neoplasm, unspecified
CPT/HCPCS: 36415; 36416; 36430; 71045; 74177; 76705; 80048; 80053; 80061; 80069; 83690; 83880; 84484; 85025; 86704; 86850; 86900; 86901; 93005; 96361; 96374; 96375; C9113; J2270; J2405; J7120; J7999; P9016

== ENCOUNTER 2023-04-29 11:13 | Inpatient (IN) | payer OTHER ==
[~2023-04-29 11:13] MED LIST: Iopamidol-370 76% 500 ML MDV (1 ML CHARGE) ONE
[2023-04-29 14:09] LABS: #Eosinphils 0.1 thou/uL (0.0-0.7); #Monocytes 0.4 thou/uL (0.11-0.59); #Neutrophils 4.1 thou/uL (1.40-6.50); %Basophils 0.5 % (0.0-1.0); %Eosinophils 1.4 % (0.0-10.0); %Lymphocytes 31.8 % (21.0-51.0); %Monocytes 5.3 % (0.0-10.0); %Neutrophils 60.7 % (42.0-75.0); Hematocrit 29.1 % (36.0-47.0); Hemoglobin 9.6 g/dL (12.0-16.0); Mean Corpuscular Volume 90.9 fl (78.0-98.0); Mean Platelet Volume 10.4 fL (7.4-10.4); Platelet Count 291 10x3/uL (130-400); RBC Distribution Width 14.6 % (11.5-14.5); White Blood Cell (WBC) Count 6.7 10x3/uL (4.8-10.8)
[2023-04-29 14:35] LABS: ALT (SGPT) 10 U/L (8-55); AST (SGOT) 17 U/L (5-34); Albumin 3.2 g/dL (3.5-5.0); Alkaline Phosphatase 159 U/L (40-110); Anion Gap 17 mmol/L (10-20); BUN (Urea Nitrogen) 22 mg/dL (7.0-18.7); Calc. Creatinine Clearance 0 mL/min (70-130); Carbon Dioxide 26 mmol/L (22-29); Chloride 94 mmol/L (98-107); Estimated GFR 14; Globulin 4.1 g/dL (2.4-3.5); Glucose 218 mg/dL (70-105); Potassium 3.1 mmol/L (3.5-5.1); Protein, Total 7.3 g/dL (6.0-8.3); Sodium 134 mmol/L (136-145)
[2023-04-29 14:39] LABS: Troponin I Less than 0.010 ng/mL (< 0.028)
[2023-04-29] MEDS ORDERED: Morphine 4 MG/ML VIAL ONE (14:54)
[2023-04-29] MEDS ORDERED: Ondansetron ODT 4 MG TAB PO PRN (16:00)
[2023-04-29] MEDS ORDERED: Ondansetron PF 4 MG/2 ML Vial IVP PRN (16:00)
[2023-04-29] MEDS ORDERED: Morphine 2 MG/ML VIAL SLOW IVP PRN (16:05)
[2023-04-29] MEDS ORDERED: HumaLOG 300 UNITS/3 ML VIAL SC PRN ×2 (17:01)
[2023-04-29] MEDS ORDERED: Dextrose 50% Abboject 50 ML SYRINGE SLOW IVP PRN (17:01)
[2023-04-29] MEDS ORDERED: Dextrose 5% in Water 1,000 ML IV PRN (17:01)
[2023-04-29] MEDS ORDERED: Glucagon 1 MG/ML KIT IM PRN (17:01)
[2023-04-30] MEDS ORDERED: Morphine 4 MG/ML VIAL ONE (01:13)
[2023-04-30] MEDS: Morphine 4 MG/ML VIAL SLOW IVP PRN ×2 (01:30→21:07)
[2023-04-30 06:52] LABS: #Eosinphils 0.2 thou/uL (0.0-0.7); #Monocytes 0.4 thou/uL (0.11-0.59); #Neutrophils 3.9 thou/uL (1.40-6.50); %Basophils 0.4 % (0.0-1.0); %Eosinophils 3.1 % (0.0-10.0); %Lymphocytes 32.8 % (21.0-51.0); %Neutrophils 57.6 % (42.0-75.0); Hematocrit 24.6 % (36.0-47.0); Hemoglobin 8.1 g/dL (12.0-16.0); Mean Corpuscular HGB CONC 32.9 g/dL (32.0-36.0); Mean Corpuscular Hemoglobin 29.7 pg (27.0-31.0); Mean Corpuscular Volume 90.1 fl (78.0-98.0); Mean Platelet Volume 10.3 fL (7.4-10.4); Platelet Count 287 10x3/uL (130-400); RBC Distribution Width 14.6 % (11.5-14.5); Red Blood Cell (RBC) Count 2.73 mill/uL (4.20-5.40); White Blood Cell (WBC) Count 6.8 10x3/uL (4.8-10.8)
[2023-04-30 07:22] LABS: ALT (SGPT) 9 U/L (8-55); AST (SGOT) 18 U/L (5-34); Albumin 3.1 g/dL (3.5-5.0); Alkaline Phosphatase 145 U/L (40-110); Anion Gap 11 mmol/L (10-20); BUN (Urea Nitrogen) 25 mg/dL (7.0-18.7); Bilirubin, Total 0.8 mg/dL (0.2-1.2); Calc. Creatinine Clearance 0 mL/min (70-130); Calcium 9.5 mg/dL (7.8-10.44); Carbon Dioxide 28 mmol/L (22-29); Chloride 98 mmol/L (98-107); Estimated GFR 13; Globulin 3.7 g/dL (2.4-3.5); Glucose 135 mg/dL (70-105); Potassium 3.1 mmol/L (3.5-5.1); Protein, Total 6.8 g/dL (6.0-8.3); Sodium 134 mmol/L (136-145)
[2023-04-30] MEDS ORDERED: Lactated Ringer's 1,000 ML IV SCH (07:45)
[2023-04-30] MEDS ORDERED: Enoxaparin 80 MG (0.8 mL) SYRINGE SC SCH ×2 (07:45→21:00)
[2023-04-30 08:02] VITALS: BMI 31.7
[2023-04-30] MEDS ORDERED: Aspirin Chewable 81 MG TAB ONE (08:37)
[2023-04-30] MEDS ORDERED: Carvedilol 6.25 MG TAB ONE (08:37)
[2023-04-30] MEDS ORDERED: Apixaban 5 MG TAB ONE (08:37)
[2023-04-30] MEDS: Aspirin Chewable 81 MG TAB PO SCH (10:14)
[2023-04-30] MEDS: Apixaban 5 MG TAB PO SCH ×2 (10:14→21:06)
[2023-04-30] MEDS: Lactated Ringer's 1,000 ML IV SCH ×3 (10:18→22:58)
[2023-04-30] MEDS: Carvedilol 6.25 MG TAB PO SCH ×2 (10:18→19:00)
[2023-04-30] MEDS ORDERED: Acetaminophen 325 MG TAB ONE (16:36)
[2023-04-30] MEDS: Acetaminophen 325 MG TAB PO PRN ×2 (16:42→21:06)
[2023-04-30] MEDS: EPOETIN ALFA-EPBX (ESRD) 10,000 UNITS/ML VIAL IVP SCH (19:00)
[2023-05-01] MEDS: Lactated Ringer's 1,000 ML IV SCH ×4 (05:55→20:41)
[2023-05-01 06:02] LABS: #Eosinphils 0.2 thou/uL (0.0-0.7); #Monocytes 0.4 thou/uL (0.11-0.59); #Neutrophils 2.8 thou/uL (1.40-6.50); %Basophils 0.7 % (0.0-1.0); %Eosinophils 3.5 % (0.0-10.0); %Lymphocytes 36.6 % (21.0-51.0); %Monocytes 7.2 % (0.0-10.0); %Neutrophils 51.6 % (42.0-75.0); Hematocrit 30.1 % (36.0-47.0); Hemoglobin 9.5 g/dL (12.0-16.0); Mean Corpuscular HGB CONC 31.6 g/dL (32.0-36.0); Mean Corpuscular Hemoglobin 29.8 pg (27.0-31.0); Mean Platelet Volume 10.5 fL (7.4-10.4); Platelet Count 277 10x3/uL (130-400); RBC Distribution Width 14.7 % (11.5-14.5); Red Blood Cell (RBC) Count 3.19 mill/uL (4.20-5.40); White Blood Cell (WBC) Count 5.4 10x3/uL (4.8-10.8)
[2023-05-01 06:05] LABS: Mean Corpuscular Volume 94.4 fl (78.0-98.0)
[2023-05-01 06:27] LABS: ALT (SGPT) 10 U/L (8-55); AST (SGOT) 18 U/L (5-34); Albumin 3.1 g/dL (3.5-5.0); Alkaline Phosphatase 145 U/L (40-110); Anion Gap 14 mmol/L (10-20); BUN (Urea Nitrogen) 10 mg/dL (7.0-18.7); Bilirubin, Total 0.9 mg/dL (0.2-1.2); Calc. Creatinine Clearance 34 mL/min (70-130); Calcium 9.9 mg/dL (7.8-10.44); Carbon Dioxide 24 mmol/L (22-29); Chloride 101 mmol/L (98-107); Estimated GFR 21; Globulin 3.7 g/dL (2.4-3.5); Glucose 102 mg/dL (70-105); Lipase 311 U/L (8-78); Potassium 3.4 mmol/L (3.5-5.1); Protein, Total 6.8 g/dL (6.0-8.3); Sodium 136 mmol/L (136-145)
[2023-05-01] MEDS: Apixaban 5 MG TAB PO SCH ×2 (08:50→20:41)
[2023-05-01] MEDS: Carvedilol 6.25 MG TAB PO SCH ×2 (08:50→16:01)
[2023-05-01] MEDS: Aspirin Chewable 81 MG TAB PO SCH (08:51)
[2023-05-01] MEDS ORDERED: Polyethylene Glycol 3350 17 GM Packet PO PRN (14:41)
[2023-05-01] MEDS ORDERED: Polyethylene Glycol 3350 17 GM Packet PO SCH (14:45)
[2023-05-01] MEDS: Acetaminophen 325 MG TAB PO PRN (20:42)
[2023-05-01 20:54] LABS: Pregnancy Test - Urine (BHCG) Negative (Negative); Pregu Control Background? CLEAR/WHITE (CLR/WHITE); Pregu Control Bar Appear? YES (CONTROL BAR); Specific Gravity 1.025 (1.002-1.036)
[2023-05-02 05:30] LABS: #Eosinphils 0.2 thou/uL (0.0-0.7); #Monocytes 0.4 thou/uL (0.11-0.59); #Neutrophils 2.8 thou/uL (1.40-6.50); %Basophils 0.5 % (0.0-1.0); %Eosinophils 3.6 % (0.0-10.0); %Lymphocytes 38.6 % (21.0-51.0); %Monocytes 7.1 % (0.0-10.0); Hematocrit 28.8 % (36.0-47.0); Hemoglobin 9.1 g/dL (12.0-16.0); Mean Corpuscular HGB CONC 31.6 g/dL (32.0-36.0); Mean Corpuscular Hemoglobin 29.2 pg (27.0-31.0); Mean Corpuscular Volume 92.3 fl (78.0-98.0); Mean Platelet Volume 10.8 fL (7.4-10.4); Platelet Count 269 10x3/uL (130-400); RBC Distribution Width 14.6 % (11.5-14.5); Red Blood Cell (RBC) Count 3.12 mill/uL (4.20-5.40); White Blood Cell (WBC) Count 5.5 10x3/uL (4.8-10.8)
[2023-05-02 05:48] LABS: ALT (SGPT) 8 U/L (8-55); AST (SGOT) 16 U/L (5-34); Albumin 3.1 g/dL (3.5-5.0); Alkaline Phosphatase 148 U/L (40-110); Anion Gap 13 mmol/L (10-20); BUN (Urea Nitrogen) 14 mg/dL (7.0-18.7); Calc. Creatinine Clearance 28 mL/min (70-130); Calcium 9.7 mg/dL (7.8-10.44); Carbon Dioxide 24 mmol/L (22-29); Chloride 101 mmol/L (98-107); Estimated GFR 16; Globulin 3.5 g/dL (2.4-3.5); Glucose 119 mg/dL (70-105); Potassium 3.3 mmol/L (3.5-5.1); Protein, Total 6.6 g/dL (6.0-8.3); Sodium 135 mmol/L (136-145); Triglycerides 180 mg/dL (Less than 150)
[2023-05-02] MEDS ORDERED: Heparin 10,000 UNITS/ 10 ML VIAL ONE (09:06)
[2023-05-02] MEDS: Polyethylene Glycol 3350 17 GM Packet PO SCH (13:15)
[2023-05-02] MEDS: EPOETIN ALFA-EPBX (ESRD) 10,000 UNITS/ML VIAL IVP SCH ×2 (13:17→13:24)
[2023-05-02] MEDS: Aspirin Chewable 81 MG TAB PO SCH (13:17)
[2023-05-02] MEDS: Lactated Ringer's 1,000 ML IV SCH ×3 (13:17→21:30)
[2023-05-02] MEDS: Carvedilol 6.25 MG TAB PO SCH ×2 (13:30→17:11)
[2023-05-02] MEDS: Apixaban 5 MG TAB PO SCH ×2 (13:30→21:30)
[2023-05-03] MEDS: Lactated Ringer's 1,000 ML IV SCH ×3 (03:56→16:54)
[2023-05-03] MEDS: Carvedilol 6.25 MG TAB PO SCH ×2 (08:15→16:53)
[2023-05-03] MEDS: Polyethylene Glycol 3350 17 GM Packet PO SCH (08:15)
[2023-05-03] MEDS: Apixaban 5 MG TAB PO SCH ×2 (08:15→20:55)
[2023-05-03] MEDS: Aspirin Chewable 81 MG TAB PO SCH (08:15)
[2023-05-04] MEDS: Lactated Ringer's 1,000 ML IV SCH ×2 (00:25→19:13)
[2023-05-04] MEDS ORDERED: fentaNYL 50 mcg/mL 1 mL Vial IM SCH (06:15)
[2023-05-04 09:36] LABS: Anion Gap 11 mmol/L (10-20); BUN (Urea Nitrogen) 12 mg/dL (7.0-18.7); Calc. Creatinine Clearance 38 mL/min (70-130); Calcium 9.1 mg/dL (7.8-10.44); Carbon Dioxide 24 mmol/L (22-29); Chloride 107 mmol/L (98-107); Estimated GFR 24; Glucose 160 mg/dL (70-105); Potassium 3.4 mmol/L (3.5-5.1); Sodium 139 mmol/L (136-145)
[2023-05-04] MEDS: Carvedilol 6.25 MG TAB PO SCH ×2 (11:05→17:28)
[2023-05-04] MEDS: Apixaban 5 MG TAB PO SCH ×2 (11:05→21:13)
[2023-05-04] MEDS: Polyethylene Glycol 3350 17 GM Packet PO SCH (11:05)
[2023-05-04] MEDS: Aspirin Chewable 81 MG TAB PO SCH (11:07)
[2023-05-04] MEDS: HYDROcodone/Acetaminophen 5/325 mg Tablet PO PRN ×3 (13:04→23:25)
[2023-05-04] MEDS: EPOETIN ALFA-EPBX (ESRD) 10,000 UNITS/ML VIAL IVP SCH (13:06)
[2023-05-05] MEDS: Aspirin Chewable 81 MG TAB PO SCH (09:13)
[2023-05-05] MEDS: Carvedilol 6.25 MG TAB PO SCH (09:14)
[2023-05-05] MEDS: Polyethylene Glycol 3350 17 GM Packet PO SCH (09:14)
[2023-05-05] MEDS: HYDROcodone/Acetaminophen 5/325 mg Tablet PO PRN (09:14)
[2023-05-05] MEDS: Apixaban 5 MG TAB PO SCH (09:14)
[2023-05-05 10:07] LABS: #Eosinphils 0.2 thou/uL (0.0-0.7); #Monocytes 0.4 thou/uL (0.11-0.59); #Neutrophils 2.1 thou/uL (1.40-6.50); %Basophils 0.6 % (0.0-1.0); %Eosinophils 3.7 % (0.0-10.0); %Lymphocytes 42.3 % (21.0-51.0); %Monocytes 8.9 % (0.0-10.0); %Neutrophils 44.3 % (42.0-75.0); Hematocrit 27.5 % (36.0-47.0); Hemoglobin 8.8 g/dL (12.0-16.0); Mean Corpuscular Hemoglobin 29.8 pg (27.0-31.0); Mean Corpuscular Volume 93.2 fl (78.0-98.0); Mean Platelet Volume 10.8 fL (7.4-10.4); Platelet Count 275 10x3/uL (130-400); Red Blood Cell (RBC) Count 2.95 mill/uL (4.20-5.40); White Blood Cell (WBC) Count 4.6 10x3/uL (4.8-10.8)
[2023-05-05 10:34] LABS: Anion Gap 14 mmol/L (10-20); BUN (Urea Nitrogen) 8 mg/dL (7.0-18.7); Calc. Creatinine Clearance 42 mL/min (70-130); Calcium 9.5 mg/dL (7.8-10.44); Carbon Dioxide 23 mmol/L (22-29); Chloride 104 mmol/L (98-107); Estimated GFR 27; Glucose 138 mg/dL (70-105); Lipase 229 U/L (8-78); Potassium 3.6 mmol/L (3.5-5.1); Sodium 137 mmol/L (136-145); Triglycerides 171 mg/dL (Less than 150)
[2023-05-05 12:20] VITALS: BP 131/67; TEMP 97.9
== END 2023-05-05 13:16 | disposition home or self-care (01) | DRG 438 ==
LOC: ERS 11:13 → ERHOLD 16:03 → T4-B 04-30 20:46
PROVIDERS: ADMIT Student in an Organized Health Care Education/Training Program; ATTEND Internal Medicine
DX: K85.90 Acute pancreatitis without necrosis or infection, unspecified (principal); N18.6 End stage renal disease; I13.2 Hypertensive heart and chronic kidney disease with heart failure and with stage 5 chronic kidney disease, or end stage renal disease; I50.32 Chronic diastolic (congestive) heart failure; E87.1 Hypo-osmolality and hyponatremia; E78.5 Hyperlipidemia, unspecified; K21.9 Gastro-esophageal reflux disease without esophagitis; F32.A Depression, unspecified; E11.22 Type 2 diabetes mellitus with diabetic chronic kidney disease; E78.1 Pure hyperglyceridemia; E87.6 Hypokalemia; E11.40 Type 2 diabetes mellitus with diabetic neuropathy, unspecified; D63.1 Anemia in chronic kidney disease; E88.09 Other disorders of plasma-protein metabolism, not elsewhere classified; K86.1 Other chronic pancreatitis; K59.00 Constipation, unspecified; E03.9 Hypothyroidism, unspecified; K66.8 Other specified disorders of peritoneum; R19.00 Intra-abdominal and pelvic swelling, mass and lump, unspecified site; Z86.718 Personal history of other venous thrombosis and embolism; Z99.2 Dependence on renal dialysis; Z79.899 Other long term (current) drug therapy; Z79.01 Long term (current) use of anticoagulants; Z79.84 Long term (current) use of oral hypoglycemic drugs; Z98.890 Other specified postprocedural states; Z90.710 Acquired absence of both cervix and uterus; Z87.891 Personal history of nicotine dependence
CPT/HCPCS: 36415; 36416; 71045; 74177; 76770; 80048; 80053; 81025; 83690; 83880; 84478; 84484; 85025; 86140; 93005; 96361; 96374; J1644; J1815; J2270; J3010; J7120; Q5105; Q9967

== ENCOUNTER 2023-06-26 07:10 | Emergency (ER) | payer OTHER ==
[2023-06-26] MEDS ORDERED: Calcium Chloride 1 GM/10 ML Abboject SYRINGE ONE (07:20)
[2023-06-26] MEDS ORDERED: EPINEPHrine 1 MG/10 ML Abboject SYRINGE ONE (07:20)
[2023-06-26] MEDS ORDERED: Sodium Bicarb 50 MEQ/50 ML Abboject 8.4% SYRINGE ONE (07:20)
== END 2023-06-26 07:37 | disposition expired ==
LOC: ERS 07:10
DX: I46.9 Cardiac arrest, cause unspecified (principal); T82.838A Hemorrhage due to vascular prosthetic devices, implants and grafts, initial encounter; E11.40 Type 2 diabetes mellitus with diabetic neuropathy, unspecified; I12.0 Hypertensive chronic kidney disease with stage 5 chronic kidney disease or end stage renal disease; E11.22 Type 2 diabetes mellitus with diabetic chronic kidney disease; N18.6 End stage renal disease; Z87.891 Personal history of nicotine dependence
CPT/HCPCS: 31500; 36430; 86850; 86900; 86901; 92950; J0171; P9016; Q0162